=== PATIENT | female | born 1950 | race Caucasian/White ===

== ENCOUNTER → 2016-11-09 | Outpatient (CLI) | payer MEDICARE, OTHER ==
[~2016-11-09] MED LIST: COUMADIN PO; WARFARIN 10 MG
[2016-11-09 14:49] LABS: INR 2.79
== END ==
LOC: M LAB 12:53
PROVIDERS: ATTEND Internal Medicine Pulmonary Disease
DX: I26.99 Other pulmonary embolism without acute cor pulmonale (principal); Z51.81 Encounter for therapeutic drug level monitoring; Z79.01 Long term (current) use of anticoagulants

== ENCOUNTER → 2016-12-06 | Outpatient (CLI) | payer MEDICARE, OTHER ==
[2016-12-06 19:17] LABS: INR 2.3
== END ==
LOC: M LAB 17:47
PROVIDERS: ATTEND Internal Medicine Pulmonary Disease
DX: I26.99 Other pulmonary embolism without acute cor pulmonale (principal); Z51.81 Encounter for therapeutic drug level monitoring; Z79.01 Long term (current) use of anticoagulants

== ENCOUNTER → 2016-12-13 | Outpatient (CLI) | payer MEDICARE, OTHER ==
[2016-12-13 19:00] LABS: INR 2.88
== END ==
LOC: M LAB 17:37
PROVIDERS: ATTEND Internal Medicine Pulmonary Disease
DX: I26.99 Other pulmonary embolism without acute cor pulmonale (principal); Z51.81 Encounter for therapeutic drug level monitoring; Z79.01 Long term (current) use of anticoagulants

== ENCOUNTER → 2017-01-13 | Outpatient (CLI) | payer MEDICARE, OTHER ==
[2017-01-13 14:05] LABS: INR 3.36
== END ==
LOC: M LAB 13:10
PROVIDERS: ATTEND Internal Medicine Pulmonary Disease
DX: I26.99 Other pulmonary embolism without acute cor pulmonale (principal); Z51.81 Encounter for therapeutic drug level monitoring; Z79.01 Long term (current) use of anticoagulants

== ENCOUNTER → 2017-01-24 | Outpatient (CLI) | payer MEDICARE, OTHER ==
[2017-01-24 13:55] LABS: INR 3.81
== END ==
LOC: M LAB 13:08
PROVIDERS: ATTEND Internal Medicine Pulmonary Disease
DX: I26.99 Other pulmonary embolism without acute cor pulmonale (principal); Z79.01 Long term (current) use of anticoagulants

== ENCOUNTER → 2017-02-01 | Outpatient (CLI) | payer MEDICARE, OTHER ==
[2017-02-01 14:46] LABS: INR 2.78
== END ==
LOC: M LAB 13:57
PROVIDERS: ATTEND Internal Medicine Pulmonary Disease
DX: I26.99 Other pulmonary embolism without acute cor pulmonale (principal); Z79.01 Long term (current) use of anticoagulants; Z51.81 Encounter for therapeutic drug level monitoring

== ENCOUNTER → 2017-02-14 | Outpatient (CLI) | payer MEDICARE, OTHER ==
[2017-02-14 15:20] LABS: INR 2.56
== END ==
LOC: M LAB 14:14
PROVIDERS: ATTEND Internal Medicine Pulmonary Disease
DX: I26.99 Other pulmonary embolism without acute cor pulmonale (principal); Z51.81 Encounter for therapeutic drug level monitoring; Z79.01 Long term (current) use of anticoagulants

== ENCOUNTER → 2017-03-01 | Outpatient (CLI) | payer MEDICARE, OTHER ==
[2017-03-01 13:00] LABS: INR 2.65
== END ==
LOC: M LAB 12:11
PROVIDERS: ATTEND Internal Medicine Pulmonary Disease
DX: I26.99 Other pulmonary embolism without acute cor pulmonale (principal); Z79.01 Long term (current) use of anticoagulants

== ENCOUNTER → 2017-03-28 | Outpatient (CLI) | payer MEDICARE, OTHER ==
[2017-03-28 17:43] LABS: BASO % 0.4 % (0.0-1.0); EOS # 0.1 K/mm3 (0.0-0.50); EOS % 1.9 % (0.0-3.0); LARGE UNSTAINED CELL # 0.1 K/mm3 (0.0-0.4); LARGE UNSTAINED CELL % 1.7 % (0.0-4.0); LYMPH # 1.8 K/mm3 (1.5-4.5); LYMPH % 33.8 % (24.0-44.0); MEAN CORPUSCULAR HEMOGLOBIN 30.9 pg (27.0-33.0); MEAN CORPUSCULAR HGB CONC 33.5 g/dl (32.0-36.5); MEAN CORPUSCULAR VOLUME 92.3 fl (80.0-96.0); MONO # 0.4 K/mm3 (0.0-0.8); MONO % 6.9 % (0.0-5.0); NEUTROPHILS # 2.8 K/mm3 (1.8-7.7); NEUTROPHILS % 55.3 % (36.0-66.0); PLATELET COUNT, AUTOMATED 221 k/mm3 (150-450); RED CELL DISTRIBUTION WIDTH 13.1 % (11.5-14.5); WHITE BLOOD COUNT 5.1 K/mm3 (4.0-10.0)
[2017-03-28 17:51] LABS: INR 2.59
== END ==
LOC: M LAB 17:15
PROVIDERS: ATTEND Internal Medicine Pulmonary Disease
DX: I26.99 Other pulmonary embolism without acute cor pulmonale (principal); Z51.81 Encounter for therapeutic drug level monitoring; Z79.01 Long term (current) use of anticoagulants; Z86.711 Personal history of pulmonary embolism

== ENCOUNTER → 2017-04-25 | Outpatient (CLI) | payer MEDICARE, OTHER ==
[2017-04-25 15:19] LABS: INR 3.05
== END ==
LOC: M LAB 14:22
PROVIDERS: ATTEND Internal Medicine Pulmonary Disease
DX: I26.99 Other pulmonary embolism without acute cor pulmonale (principal); Z51.81 Encounter for therapeutic drug level monitoring; Z79.01 Long term (current) use of anticoagulants

== ENCOUNTER → 2017-05-23 | Outpatient (CLI) | payer MEDICARE, OTHER ==
[2017-05-23 14:08] LABS: INR 2.64
== END ==
LOC: M LAB 13:19
PROVIDERS: ATTEND Internal Medicine Pulmonary Disease
DX: Z79.01 Long term (current) use of anticoagulants (principal)

== ENCOUNTER → 2017-06-22 | Outpatient (CLI) | payer MEDICARE, OTHER ==
[2017-06-22 15:50] LABS: BASO % 0.8 % (0.0-1.0); EOS # 0.1 K/mm3 (0.0-0.50); EOS % 2.2 % (0.0-3.0); LARGE UNSTAINED CELL # 0.1 K/mm3 (0.0-0.4); LARGE UNSTAINED CELL % 1.8 % (0.0-4.0); LYMPH # 1.8 K/mm3 (1.5-4.5); LYMPH % 31.1 % (24.0-44.0); MEAN CORPUSCULAR HEMOGLOBIN 30.6 pg (27.0-33.0); MEAN CORPUSCULAR VOLUME 92.6 fl (80.0-96.0); MONO # 0.4 K/mm3 (0.0-0.8); MONO % 7.2 % (0.0-5.0); NEUTROPHILS % 56.9 % (36.0-66.0); PLATELET COUNT, AUTOMATED 237 k/mm3 (150-450); RED CELL DISTRIBUTION WIDTH 13.2 % (11.5-14.5); WHITE BLOOD COUNT 5.3 K/mm3 (4.0-10.0)
[2017-06-22 15:58] LABS: INR 2.83
== END ==
LOC: M LAB 14:53
PROVIDERS: ATTEND Internal Medicine Pulmonary Disease
DX: I26.99 Other pulmonary embolism without acute cor pulmonale (principal); Z51.81 Encounter for therapeutic drug level monitoring; Z79.01 Long term (current) use of anticoagulants; Z86.711 Personal history of pulmonary embolism

== ENCOUNTER → 2017-06-29 | Outpatient (CLI) | payer MEDICARE, OTHER ==
[2017-06-29 14:13] LABS: INR 2.64
== END ==
LOC: M LAB 13:09
PROVIDERS: ATTEND Internal Medicine Pulmonary Disease
DX: Z79.01 Long term (current) use of anticoagulants (principal); Z86.711 Personal history of pulmonary embolism

== ENCOUNTER → 2017-07-20 | Outpatient (CLI) | payer OTHER, MEDICARE ==
[2017-07-20 13:30] LABS: INR 2.91
== END ==
LOC: M LAB 12:45
PROVIDERS: ATTEND Internal Medicine Pulmonary Disease
DX: Z86.711 Personal history of pulmonary embolism (principal); Z79.01 Long term (current) use of anticoagulants

== ENCOUNTER → 2017-08-09 | Outpatient (CLI) | payer OTHER, MEDICARE ==
[2017-08-09 19:01] LABS: INR 3.43
== END ==
LOC: M LAB 18:01
PROVIDERS: ATTEND Internal Medicine Pulmonary Disease
DX: Z86.711 Personal history of pulmonary embolism (principal)

== ENCOUNTER → 2017-08-16 | Outpatient (CLI) | payer MEDICARE, OTHER ==
[2017-08-16 12:44] LABS: INR 3.15
== END ==
LOC: M LAB 11:17
PROVIDERS: ATTEND Internal Medicine Pulmonary Disease
DX: Z86.711 Personal history of pulmonary embolism (principal)

== ENCOUNTER → 2017-10-06 | Outpatient (CLI) | payer MEDICARE, OTHER ==
[2017-10-06 13:34] LABS: MEAN CORPUSCULAR HEMOGLOBIN 30.3 pg (27.0-33.0); MEAN CORPUSCULAR HGB CONC 32.6 g/dl (32.0-36.5); PLATELET COUNT, AUTOMATED 273 10^3/uL (150-450); RED CELL DISTRIBUTION WIDTH 13.1 % (11.5-14.5); WHITE BLOOD COUNT 5.6 10^3/uL (4.0-10.0)
[2017-10-06 13:48] LABS: INR 2.8
== END ==
LOC: M LAB 12:53
PROVIDERS: ATTEND Internal Medicine Pulmonary Disease
DX: D68.62 Lupus anticoagulant syndrome (principal); Z79.01 Long term (current) use of anticoagulants; Z86.711 Personal history of pulmonary embolism

== ENCOUNTER → 2017-11-09 | Outpatient (CLI) | payer MEDICARE, OTHER ==
[2017-11-09 11:29] LABS: INR 3.24; PROTHROMBIN TIME 34.6 SECONDS (12.4-14.5)
== END ==
LOC: M LAB 10:24
DX: Z51.81 Encounter for therapeutic drug level monitoring (principal); Z79.01 Long term (current) use of anticoagulants
CPT/HCPCS: 85610

== ENCOUNTER → 2017-11-17 | Outpatient (CLI) | payer MEDICARE, OTHER ==
[2017-11-17 10:38] LABS: INR 2.32; PROTHROMBIN TIME 26.4 SECONDS (12.4-14.5)
== END ==
LOC: M LAB 09:40
DX: D68.62 Lupus anticoagulant syndrome (principal); Z79.01 Long term (current) use of anticoagulants
CPT/HCPCS: 85610

== ENCOUNTER → 2017-11-29 | Outpatient (CLI) | payer MEDICARE, OTHER ==
[2017-11-29 12:13] LABS: INR 2.62; PROTHROMBIN TIME 29.1 SECONDS (12.4-14.5)
== END ==
LOC: M LAB 11:29
DX: Z51.81 Encounter for therapeutic drug level monitoring (principal); Z79.01 Long term (current) use of anticoagulants
CPT/HCPCS: 85610

== ENCOUNTER → 2017-12-15 | Outpatient (CLI) | payer MEDICARE, OTHER | LOC: M WHC 09:40 | DX: Z12.31 Encounter for screening mammogram for malignant neoplasm of breast (principal); Z78.0 Asymptomatic menopausal state | CPT/HCPCS: 77067 ==

== ENCOUNTER → 2017-12-19 | Outpatient (CLI) | payer MEDICARE, OTHER ==
[2017-12-19 14:12] LABS: HEMOGLOBIN 12.5 g/dl (12.0-16.0); MEAN CORPUSCULAR HEMOGLOBIN 29.7 pg (27.0-33.0); MEAN CORPUSCULAR HGB CONC 32.1 g/dl (32.0-36.5); MEAN CORPUSCULAR VOLUME 92.6 fl (80.0-96.0); PLATELET COUNT, AUTOMATED 265 10^3/uL (150-450); RED BLOOD COUNT 4.21 10^6/uL (4.00-5.40); RED CELL DISTRIBUTION WIDTH 13.1 % (11.5-14.5); WHITE BLOOD COUNT 5.3 10^3/uL (4.0-10.0)
[2017-12-19 14:23] LABS: INR 2.86; PROTHROMBIN TIME 31.3 SECONDS (12.4-14.5)
== END ==
LOC: M LAB 12:53
DX: D68.62 Lupus anticoagulant syndrome (principal); Z79.01 Long term (current) use of anticoagulants; Z86.711 Personal history of pulmonary embolism
CPT/HCPCS: 85610

== ENCOUNTER → 2018-01-18 | Outpatient (CLI) | payer MEDICARE, OTHER ==
[2018-01-18 11:40] LABS: INR 3.96; PROTHROMBIN TIME 40.7 SECONDS (12.4-14.5)
== END ==
LOC: M LAB 10:57
DX: D68.62 Lupus anticoagulant syndrome (principal)
CPT/HCPCS: 85610

== ENCOUNTER → 2018-02-01 | Outpatient (CLI) | payer MEDICARE, OTHER ==
[2018-02-01 13:37] LABS: INR 2.49; PROTHROMBIN TIME 27.9 SECONDS (12.4-14.5)
== END ==
LOC: M LAB 13:04
DX: D68.62 Lupus anticoagulant syndrome (principal); Z79.01 Long term (current) use of anticoagulants
CPT/HCPCS: 85610

== ENCOUNTER → 2018-03-09 | Outpatient (CLI) | payer MEDICARE, OTHER ==
[2018-03-09 11:34] LABS: INR 2.97; PROTHROMBIN TIME 32.2 SECONDS (12.4-14.5)
== END ==
LOC: M LAB 10:47
DX: D68.62 Lupus anticoagulant syndrome (principal); Z79.01 Long term (current) use of anticoagulants
CPT/HCPCS: 85610

== ENCOUNTER → 2018-03-28 | Outpatient (CLI) | payer MEDICARE, OTHER ==
[2018-03-28 14:12] LABS: INR 2.21; PROTHROMBIN TIME 25.3 SECONDS (12.4-14.5)
== END ==
LOC: M LAB 12:37
DX: Z51.81 Encounter for therapeutic drug level monitoring (principal); Z79.01 Long term (current) use of anticoagulants
CPT/HCPCS: 85610

== ENCOUNTER → 2018-04-25 | Outpatient (CLI) | payer MEDICARE, OTHER ==
[2018-04-25 11:20] LABS: INR 2.41; PROTHROMBIN TIME 27.2 SECONDS (12.4-14.5)
== END ==
LOC: M LAB 10:20
DX: Z51.81 Encounter for therapeutic drug level monitoring (principal); Z79.01 Long term (current) use of anticoagulants
CPT/HCPCS: 85610

== ENCOUNTER → 2018-05-22 | Outpatient (CLI) | payer MEDICARE, OTHER ==
[2018-05-22 13:30] LABS: INR 2.53; PROTHROMBIN TIME 27.8 SECONDS (12.1-14.4)
== END ==
LOC: M LAB 12:59
DX: Z51.81 Encounter for therapeutic drug level monitoring (principal); Z79.01 Long term (current) use of anticoagulants
CPT/HCPCS: 85610

== ENCOUNTER → 2018-06-12 | Outpatient (CLI) | payer MEDICARE, OTHER ==
[2018-06-12 13:18] LABS: HEMATOCRIT 39.5 % (36.0-47.0); HEMOGLOBIN 13.1 g/dl (12.0-15.5); MEAN CORPUSCULAR HEMOGLOBIN 30.6 pg (27.0-33.0); MEAN CORPUSCULAR HGB CONC 33.2 g/dl (32.0-36.5); MEAN CORPUSCULAR VOLUME 92.3 fl (80.0-96.0); PLATELET COUNT, AUTOMATED 234 10^3/uL (150-450); RED BLOOD COUNT 4.28 10^6/uL (4.00-5.40); RED CELL DISTRIBUTION WIDTH 13.3 % (11.5-14.5)
[2018-06-12 13:30] LABS: INR 2.46; PROTHROMBIN TIME 27.2 SECONDS (12.1-14.4)
== END ==
LOC: M LAB 12:42
DX: Z51.81 Encounter for therapeutic drug level monitoring (principal); Z79.01 Long term (current) use of anticoagulants; D68.62 Lupus anticoagulant syndrome; Z86.711 Personal history of pulmonary embolism
CPT/HCPCS: 85610

== ENCOUNTER → 2018-07-31 | Outpatient (CLI) | payer MEDICARE, OTHER ==
[2018-07-31 14:31] LABS: INR 3.71; PROTHROMBIN TIME 37.6 SECONDS (12.1-14.4)
== END ==
LOC: M LAB 12:48
DX: Z79.01 Long term (current) use of anticoagulants (principal)
CPT/HCPCS: 85610

== ENCOUNTER → 2018-08-10 | Outpatient (CLI) | payer MEDICARE, OTHER ==
[2018-08-10 13:49] LABS: INR 3.34; PROTHROMBIN TIME 34.6 SECONDS (12.1-14.4)
== END ==
LOC: M LAB 13:03
DX: Z51.81 Encounter for therapeutic drug level monitoring (principal); Z79.01 Long term (current) use of anticoagulants
CPT/HCPCS: 85610

== ENCOUNTER → 2018-08-17 | Outpatient (CLI) | payer MEDICARE, OTHER ==
[2018-08-17 13:45] LABS: INR 2.37; PROTHROMBIN TIME 26.4 SECONDS (12.1-14.4)
== END ==
LOC: M LAB 13:03
DX: Z51.81 Encounter for therapeutic drug level monitoring (principal); Z79.01 Long term (current) use of anticoagulants
CPT/HCPCS: 85610

== ENCOUNTER → 2018-08-31 | Outpatient (REF) | payer MEDICARE, OTHER ==
[2018-08-31 12:32] LABS: INR 2.39; PROTHROMBIN TIME 26.6 SECONDS (12.1-14.4)
== END ==
LOC: M LAB REF 11:52
DX: Z51.81 Encounter for therapeutic drug level monitoring (principal); Z79.01 Long term (current) use of anticoagulants; Z86.711 Personal history of pulmonary embolism
CPT/HCPCS: 85610

== ENCOUNTER → 2018-09-07 | Outpatient (CLI) | payer MEDICARE, OTHER ==
[2018-09-07 13:28] LABS: HEMATOCRIT 39.8 % (36.0-47.0); HEMOGLOBIN 12.8 g/dl (12.0-15.5); MEAN CORPUSCULAR HEMOGLOBIN 29.8 pg (27.0-33.0); MEAN CORPUSCULAR HGB CONC 32.2 g/dl (32.0-36.5); MEAN CORPUSCULAR VOLUME 92.6 fl (80.0-96.0); PLATELET COUNT, AUTOMATED 269 10^3/uL (150-450); RED CELL DISTRIBUTION WIDTH 13.1 % (11.5-14.5); WHITE BLOOD COUNT 4.6 10^3/uL (4.0-10.0)
[2018-09-07 13:41] LABS: INR 2.54; PROTHROMBIN TIME 27.9 SECONDS (12.1-14.4)
== END ==
LOC: M LAB 12:22
DX: Z51.81 Encounter for therapeutic drug level monitoring (principal); Z79.01 Long term (current) use of anticoagulants; Z86.711 Personal history of pulmonary embolism
CPT/HCPCS: 85610

== ENCOUNTER → 2018-09-22 | Outpatient (CLI) | payer MEDICARE, OTHER ==
[2018-09-22 13:09] LABS: INR 2.28; PROTHROMBIN TIME 25.6 SECONDS (12.1-14.4)
== END ==
LOC: M LAB 11:25
DX: Z09 Encounter for follow-up examination after completed treatment for conditions other than malignant neoplasm (principal); Z86.711 Personal history of pulmonary embolism
CPT/HCPCS: 85610

== ENCOUNTER → 2018-10-05 | Outpatient (CLI) | payer MEDICARE, OTHER ==
[2018-10-05 14:21] LABS: INR 2.54; PROTHROMBIN TIME 27.9 SECONDS (12.1-14.4)
== END ==
LOC: M LAB 13:11
DX: Z09 Encounter for follow-up examination after completed treatment for conditions other than malignant neoplasm (principal); Z86.711 Personal history of pulmonary embolism
CPT/HCPCS: 85610

== ENCOUNTER → 2018-10-23 | Outpatient (CLI) | payer MEDICARE, OTHER ==
[2018-10-23 13:49] LABS: INR 2.73; PROTHROMBIN TIME 29.5 SECONDS (12.1-14.4)
== END ==
LOC: M LAB 12:46
PROVIDERS: ATTEND Internal Medicine Pulmonary Disease
DX: Z86.711 Personal history of pulmonary embolism (principal)

== ENCOUNTER → 2018-11-14 | Outpatient (CLI) | payer MEDICARE, OTHER ==
[2018-11-14 13:15] LABS: INR 2.21
== END ==
LOC: M LAB 12:26
PROVIDERS: ATTEND Internal Medicine Pulmonary Disease
DX: Z86.711 Personal history of pulmonary embolism (principal); Z79.01 Long term (current) use of anticoagulants

== ENCOUNTER → 2018-11-21 | Outpatient (CLI) | payer MEDICARE, OTHER ==
[2018-11-21 13:42] LABS: INR 2.4; PROTHROMBIN TIME 26.7 SECONDS (12.1-14.4)
== END ==
LOC: M LAB 12:58
PROVIDERS: ATTEND Internal Medicine Pulmonary Disease
DX: Z79.01 Long term (current) use of anticoagulants (principal); Z86.711 Personal history of pulmonary embolism

== ENCOUNTER → 2018-12-05 | Outpatient (CLI) | payer MEDICARE, OTHER ==
[2018-12-05 20:07] LABS: INR 2.35; PROTHROMBIN TIME 26.2 SECONDS (12.1-14.4)
== END ==
LOC: M LAB 12:44
PROVIDERS: ATTEND Internal Medicine Pulmonary Disease
DX: Z86.711 Personal history of pulmonary embolism (principal)

== ENCOUNTER → 2018-12-26 | Outpatient (CLI) | payer MEDICARE, OTHER ==
[2018-12-26 12:38] LABS: INR 1.87; PROTHROMBIN TIME 21.8 SECONDS (12.1-14.4)
== END ==
LOC: M LAB 11:39
PROVIDERS: ATTEND Internal Medicine Pulmonary Disease
DX: Z86.711 Personal history of pulmonary embolism (principal)

== ENCOUNTER → 2019-01-03 | Outpatient (CLI) | payer MEDICARE, OTHER ==
[2019-01-03 13:53] LABS: INR 2.37; PROTHROMBIN TIME 26.3 SECONDS (12.1-14.4)
== END ==
LOC: M LAB 12:23
PROVIDERS: ATTEND Internal Medicine Pulmonary Disease
DX: Z86.711 Personal history of pulmonary embolism (principal)

== ENCOUNTER → 2019-01-10 | Outpatient (CLI) | payer MEDICARE, OTHER ==
[2019-01-10 13:53] LABS: INR 2.59; PROTHROMBIN TIME 28.3 SECONDS (12.1-14.4)
== END ==
LOC: M LAB 12:34
PROVIDERS: ATTEND Internal Medicine Pulmonary Disease
DX: Z86.711 Personal history of pulmonary embolism (principal); Z79.01 Long term (current) use of anticoagulants

== ENCOUNTER → 2019-01-19 | Outpatient (CLI) | payer MEDICARE, OTHER ==
--- NOTE | 2019-01-19 16:29 | REPMRS ---
Patient History The patient states she had a clinical breast exam in 01/2019. Patient is postmenopausal. Family history of prostate cancer at age 50 or over in father, colorectal cancer at age 50 or over in paternal grandfather. No Hormone Replacement Therapy Digital Woman Screen Mammo: January 19, 2019 - Exam #: [id number] Bilateral CC and MLO view(s) were taken. Technologist: Megha Sheehan, Technologist Prior study comparison: December 15, 2017, digital woman screen mammo performed at [facility]. October 25, 2016, digital woman screen mammo performed at [facility]. FINDINGS: The breast tissue is almost entirely fat. There has been no change in the appearance of the mammogram from the prior studies. There is no interval development of dominant mass, areas of architectural distortion, or clustered microcalcification typical of malignancy. There are scattered, small, benign calcifications of doubtful clinical significance. There is a benign appearing intramammary node in the upper outer quadrant of the bilateral breasts. Scattered lymph nodes are seen in the axillae. 3-D tomosynthesis shows no additional findings. No significant changes when compared with prior studies. Assessment: BI-RADS/ACR category 2 mammogram. Benign Findings. Recommendation Routine screening mammogram in 1 year. A. Negative x-ray reports should not delay biopsy if a dominant or clinically suspicious mass is present. B. Four to eight percent of cancers are not identified by mammography. C. Adenosis and dense breast may obscure an underlying neoplasm.(for women over age 40). This mammogram was interpreted with the aid of an FDA-approved computer-aided dectection system. Electronically Signed By: Anirudh Manzo MD 01/19/19 [id number]
== END ==
LOC: M WHC 11:15
PROVIDERS: ATTEND Nurse Practitioner Family
DX: Z12.31 Encounter for screening mammogram for malignant neoplasm of breast (principal); Z78.0 Asymptomatic menopausal state; R92.1 Mammographic calcification found on diagnostic imaging of breast
CPT/HCPCS: 77063; 77067; G0463

== ENCOUNTER → 2019-01-24 | Outpatient (CLI) | payer MEDICARE, OTHER ==
[2019-01-24 13:33] LABS: INR 3.07; PROTHROMBIN TIME 32.4 SECONDS (12.1-14.4)
== END ==
LOC: M LAB 12:27
PROVIDERS: ATTEND Internal Medicine Pulmonary Disease
DX: Z86.711 Personal history of pulmonary embolism (principal)

== ENCOUNTER → 2019-02-06 | Outpatient (CLI) | payer MEDICARE, OTHER ==
[2019-02-06 13:11] LABS: INR 2.57; PROTHROMBIN TIME 28.1 SECONDS (12.1-14.4)
== END ==
LOC: M LAB 12:33
PROVIDERS: ATTEND Internal Medicine Pulmonary Disease
DX: Z09 Encounter for follow-up examination after completed treatment for conditions other than malignant neoplasm (principal); Z86.711 Personal history of pulmonary embolism

== ENCOUNTER → 2019-02-27 | Outpatient (CLI) | payer MEDICARE, OTHER ==
[2019-02-27 11:36] LABS: HEMATOCRIT 40.4 % (36.0-47.0); MEAN CORPUSCULAR HEMOGLOBIN 29.7 pg (27.0-33.0); MEAN CORPUSCULAR HGB CONC 32.2 g/dl (32.0-36.5); MEAN CORPUSCULAR VOLUME 92.4 fl (80.0-96.0); PLATELET COUNT, AUTOMATED 244 10^3/uL (150-450); RED BLOOD COUNT 4.37 10^6/uL (4.00-5.40); WHITE BLOOD COUNT 5.7 10^3/uL (4.0-10.0)
[2019-02-27 11:53] LABS: INR 2.73; PROTHROMBIN TIME 29.5 SECONDS (12.1-14.4)
== END ==
LOC: M LAB 11:16
PROVIDERS: ATTEND Internal Medicine Pulmonary Disease
DX: Z86.711 Personal history of pulmonary embolism (principal); Z79.01 Long term (current) use of anticoagulants; D68.62 Lupus anticoagulant syndrome

== ENCOUNTER → 2019-03-20 | Outpatient (CLI) | payer MEDICARE, OTHER ==
[2019-03-20 13:43] LABS: INR 2.46; PROTHROMBIN TIME 27.2 SECONDS (12.1-14.4)
== END ==
LOC: M LAB 12:46
PROVIDERS: ATTEND Internal Medicine Pulmonary Disease
DX: Z86.711 Personal history of pulmonary embolism (principal); Z79.01 Long term (current) use of anticoagulants

== ENCOUNTER → 2019-04-10 | Outpatient (CLI) | payer MEDICARE, OTHER ==
[2019-04-10 13:43] LABS: INR 2.14; PROTHROMBIN TIME 24.3 SECONDS (12.1-14.4)
== END ==
LOC: M LAB 12:48
PROVIDERS: ATTEND Internal Medicine Pulmonary Disease
DX: Z86.711 Personal history of pulmonary embolism (principal); Z79.01 Long term (current) use of anticoagulants

== ENCOUNTER → 2019-05-01 | Outpatient (CLI) | payer MEDICARE, OTHER ==
[2019-05-01 11:01] LABS: INR 2.39; PROTHROMBIN TIME 25.9 SECONDS (11.8-14.0)
== END ==
LOC: M LAB 09:57
PROVIDERS: ATTEND Internal Medicine Pulmonary Disease
DX: Z86.711 Personal history of pulmonary embolism (principal); Z79.01 Long term (current) use of anticoagulants

== ENCOUNTER → 2019-06-25 | Outpatient (CLI) | payer MEDICARE, OTHER ==
[2019-06-25 12:19] LABS: INR 3.38; PROTHROMBIN TIME 34.2 SECONDS (11.8-14.0)
== END ==
LOC: M LAB 10:58
PROVIDERS: ATTEND Internal Medicine Pulmonary Disease
DX: Z79.01 Long term (current) use of anticoagulants (principal); Z86.711 Personal history of pulmonary embolism

== ENCOUNTER → 2019-07-11 | Outpatient (CLI) | payer MEDICARE, OTHER ==
[2019-07-11 11:52] LABS: INR 2.69; PROTHROMBIN TIME 28.5 SECONDS (11.8-14.0)
== END ==
LOC: M LAB 11:02
PROVIDERS: ATTEND Internal Medicine Pulmonary Disease
DX: Z86.711 Personal history of pulmonary embolism (principal); Z79.01 Long term (current) use of anticoagulants

== ENCOUNTER → 2019-08-07 | Outpatient (CLI) | payer MEDICARE, OTHER ==
[2019-08-07 12:36] LABS: HEMATOCRIT 40.9 % (36.0-47.0); HEMOGLOBIN 13.1 g/dl (12.0-15.5); MEAN CORPUSCULAR HEMOGLOBIN 30.2 pg (27.0-33.0); MEAN CORPUSCULAR VOLUME 94.2 fl (80.0-96.0); PLATELET COUNT, AUTOMATED 245 10^3/uL (150-450); RED BLOOD COUNT 4.34 10^6/uL (4.00-5.40); WHITE BLOOD COUNT 4.4 10^3/uL (4.0-10.0)
[2019-08-07 12:53] LABS: INR 2.64
== END ==
LOC: M LAB 11:40
PROVIDERS: ATTEND Internal Medicine Pulmonary Disease
DX: Z86.711 Personal history of pulmonary embolism (principal); Z79.01 Long term (current) use of anticoagulants

== ENCOUNTER → 2019-09-04 | Outpatient (CLI) | payer MEDICARE, OTHER ==
[2019-09-04 14:05] LABS: INR 3.33; PROTHROMBIN TIME 33.8 SECONDS (11.8-14.0)
== END ==
LOC: M LAB 13:02
PROVIDERS: ATTEND Internal Medicine Pulmonary Disease
DX: Z51.81 Encounter for therapeutic drug level monitoring (principal); Z86.711 Personal history of pulmonary embolism; Z79.01 Long term (current) use of anticoagulants

== ENCOUNTER → 2019-09-17 | Outpatient (CLI) | payer MEDICARE, OTHER ==
[2019-09-17 13:05] LABS: INR 2.65; PROTHROMBIN TIME 28.1 SECONDS (11.8-14.0)
== END ==
LOC: M LAB 11:13
PROVIDERS: ATTEND Internal Medicine Pulmonary Disease
DX: Z86.711 Personal history of pulmonary embolism (principal); Z79.01 Long term (current) use of anticoagulants

== ENCOUNTER → 2019-10-01 | Outpatient (CLI) | payer MEDICARE, OTHER ==
[2019-10-01 10:54] LABS: INR 2.72; PROTHROMBIN TIME 28.7 SECONDS (11.8-14.0)
== END ==
LOC: M LAB 08:53
PROVIDERS: ATTEND Internal Medicine Pulmonary Disease
DX: Z51.81 Encounter for therapeutic drug level monitoring (principal); Z79.01 Long term (current) use of anticoagulants; Z86.711 Personal history of pulmonary embolism

== ENCOUNTER → 2019-10-22 | Outpatient (CLI) | payer MEDICARE, OTHER ==
[2019-10-22 20:49] LABS: INR 2.97; PROTHROMBIN TIME 30.9 SECONDS (11.8-14.0)
== END ==
LOC: M LAB 14:28
PROVIDERS: ATTEND Internal Medicine Pulmonary Disease
DX: Z51.81 Encounter for therapeutic drug level monitoring (principal); Z79.01 Long term (current) use of anticoagulants; Z86.711 Personal history of pulmonary embolism

== ENCOUNTER → 2019-11-20 | Outpatient (CLI) | payer MEDICARE, OTHER ==
[2019-11-20 12:08] LABS: HEMATOCRIT 41.1 % (36.0-47.0); HEMOGLOBIN 13.1 g/dl (12.0-15.5); MEAN CORPUSCULAR HEMOGLOBIN 30.2 pg (27.0-33.0); MEAN CORPUSCULAR HGB CONC 31.9 g/dl (32.0-36.5); MEAN CORPUSCULAR VOLUME 94.7 fl (80.0-96.0); PLATELET COUNT, AUTOMATED 246 10^3/uL (150-450); RED BLOOD COUNT 4.34 10^6/uL (4.00-5.40); WHITE BLOOD COUNT 4.8 10^3/uL (4.0-10.0)
[2019-11-20 12:19] LABS: INR 3.09; PROTHROMBIN TIME 31.8 SECONDS (11.8-14.0)
== END ==
LOC: M LAB 11:30
PROVIDERS: ATTEND Internal Medicine Pulmonary Disease
DX: Z51.81 Encounter for therapeutic drug level monitoring (principal); Z79.01 Long term (current) use of anticoagulants; Z86.711 Personal history of pulmonary embolism

== ENCOUNTER → 2019-12-19 | Outpatient (CLI) | payer MEDICARE, OTHER ==
[2019-12-19 11:47] LABS: PROTHROMBIN TIME 49.5 SECONDS (11.8-14.0)
[2019-12-19 12:23] LABS: INR 5.37
== END ==
LOC: M LAB 10:41 → M RAD 10:41
PROVIDERS: ATTEND Internal Medicine Pulmonary Disease
DX: Z51.81 Encounter for therapeutic drug level monitoring (principal); Z79.01 Long term (current) use of anticoagulants; Z86.711 Personal history of pulmonary embolism

== ENCOUNTER → 2019-12-21 | Outpatient (CLI) | payer MEDICARE, OTHER ==
[2019-12-21 11:57] LABS: INR 2.65; PROTHROMBIN TIME 28.1 SECONDS (11.8-14.0)
== END ==
LOC: M LAB 10:50
PROVIDERS: ATTEND Internal Medicine Pulmonary Disease
DX: Z51.81 Encounter for therapeutic drug level monitoring (principal); Z79.01 Long term (current) use of anticoagulants; Z86.711 Personal history of pulmonary embolism

== ENCOUNTER → 2019-12-24 | Outpatient (CLI) | payer MEDICARE, OTHER ==
[2019-12-24 12:18] LABS: INR 2.85; PROTHROMBIN TIME 29.8 SECONDS (11.8-14.0)
== END ==
LOC: M LAB 11:10
PROVIDERS: ATTEND Internal Medicine Pulmonary Disease
DX: Z51.81 Encounter for therapeutic drug level monitoring (principal); Z79.01 Long term (current) use of anticoagulants; Z86.711 Personal history of pulmonary embolism

== ENCOUNTER → 2020-01-07 | Outpatient (CLI) | payer MEDICARE, OTHER ==
[2020-01-07 13:18] LABS: INR 3.33; PROTHROMBIN TIME 33.8 SECONDS (11.8-14.0)
== END ==
LOC: M LAB 11:51
PROVIDERS: ATTEND Internal Medicine Pulmonary Disease
DX: Z51.81 Encounter for therapeutic drug level monitoring (principal); Z79.01 Long term (current) use of anticoagulants; Z86.711 Personal history of pulmonary embolism

== ENCOUNTER → 2020-01-10 | Outpatient (CLI) | payer MEDICARE, OTHER ==
[2020-01-10 14:22] LABS: INR 2.55; PROTHROMBIN TIME 27.3 SECONDS (11.8-14.0)
== END ==
LOC: M LAB 13:21
PROVIDERS: ATTEND Internal Medicine Pulmonary Disease
DX: Z51.81 Encounter for therapeutic drug level monitoring (principal); Z79.01 Long term (current) use of anticoagulants; Z86.711 Personal history of pulmonary embolism

== ENCOUNTER → 2020-01-17 | Outpatient (CLI) | payer MEDICARE, OTHER ==
[2020-01-17 14:31] LABS: INR 2.65; PROTHROMBIN TIME 28.1 SECONDS (11.8-14.0)
== END ==
LOC: M LAB 12:07
PROVIDERS: ATTEND Internal Medicine Pulmonary Disease
DX: Z51.81 Encounter for therapeutic drug level monitoring (principal); Z79.01 Long term (current) use of anticoagulants; Z86.711 Personal history of pulmonary embolism

== ENCOUNTER → 2020-02-07 | Outpatient (REF) | payer MEDICARE, OTHER ==
[2020-02-07 16:39] LABS: INR 2.52
== END ==
LOC: M LABDRWAD 16:02
PROVIDERS: ATTEND Internal Medicine Pulmonary Disease
DX: Z51.81 Encounter for therapeutic drug level monitoring (principal); Z79.01 Long term (current) use of anticoagulants; Z86.711 Personal history of pulmonary embolism

== ENCOUNTER → 2020-02-28 | Outpatient (REF) | payer MEDICARE, OTHER ==
[2020-02-28 13:27] LABS: HEMATOCRIT 43.9 % (36.0-47.0); HEMOGLOBIN 14.3 g/dl (12.0-15.5); MEAN CORPUSCULAR HEMOGLOBIN 30.3 pg (27.0-33.0); MEAN CORPUSCULAR HGB CONC 32.6 g/dl (32.0-36.5); PLATELET COUNT, AUTOMATED 254 10^3/uL (150-450); RED BLOOD COUNT 4.72 10^6/uL (4.00-5.40); WHITE BLOOD COUNT 5.3 10^3/uL (4.0-10.0)
[2020-02-28 13:38] LABS: INR 2.91; PROTHROMBIN TIME 30.3 SECONDS (11.8-14.0)
== END ==
LOC: M LABDRWAD 12:28
PROVIDERS: ATTEND Internal Medicine Pulmonary Disease
DX: Z86.711 Personal history of pulmonary embolism (principal); Z79.01 Long term (current) use of anticoagulants

== ENCOUNTER → 2020-03-03 | Outpatient (REF) | payer MEDICARE, OTHER ==
[2020-03-03 17:40] LABS: INR 3.03; PROTHROMBIN TIME 31.3 SECONDS (11.8-14.0)
== END ==
LOC: M LABDRWAD 16:26
PROVIDERS: ATTEND Internal Medicine Pulmonary Disease
DX: Z86.711 Personal history of pulmonary embolism (principal); Z79.01 Long term (current) use of anticoagulants

== ENCOUNTER → 2020-03-17 | Outpatient (REF) | payer MEDICARE, OTHER ==
[2020-03-17 17:06] LABS: INR 2.37; PROTHROMBIN TIME 25.7 SECONDS (11.8-14.0)
== END ==
LOC: M LABDRWAD 16:23
PROVIDERS: ATTEND Internal Medicine Pulmonary Disease
DX: Z86.711 Personal history of pulmonary embolism (principal); Z79.01 Long term (current) use of anticoagulants

== ENCOUNTER → 2020-03-27 | Outpatient (CLI) | payer MEDICARE, OTHER ==
--- NOTE | 2020-03-27 10:22 | REPMRS ---
Patient History The patient states she had a clinical breast exam in March 2020. Family history of prostate cancer at age 50 or over in father, colorectal cancer at age 50 or over in paternal grandfather. No Hormone Replacement Therapy Digital Woman Screen Mammo: March 27, 2020 - Exam #: [id number] Bilateral CC and MLO view(s) were taken. Technologist: Noelle Neri, Technologist Prior study comparison: January 19, 2019, bilateral digital woman screen mammo performed at [facility]. December 15, 2017, digital woman screen mammo performed at [facility]. October 25, 2016, digital woman screen mammo performed at [facility]. FINDINGS: There are scattered fibroglandular densities. The Volpara volumetric breast density category is:B. There has been no change in the appearance of the mammogram from the prior studies. There is a mild amount of scattered fibroglandular density which is fairly symmetric. There is no interval development of dominant mass, architectural distortion, or grouped microcalcification suggestive of malignancy. 3-D tomosynthesis shows no additional findings. Assessment: BI-RADS/ACR category 1 mammogram. Negative Mammogram. Recommendation Routine screening mammogram of both breasts in 1 year (for women over age 40). This patient's Lifetime Breast Cancer Risk is estimated at 4.0 %. This mammogram was interpreted with the aid of an FDA-approved computer-aided dectection system. Electronically Signed By: Miguel Freitas MD 03/27/20 [id number]
--- NOTE | 2020-04-04 14:45 | DEXA ---
AP SPINE L1 - L4 1.184 -0.1 1.6 LT FEMUR TOTAL 0.871 -1.1 0.3 LT NECK 0.868 -1.2 0.4 RT FEMUR TOTAL 0.926 -0.7 0.7 RT NECK 0.921 -0.8 0.8 TOTAL BODY TOTAL OTHER COMMENTS: Normal bone densitometry of the spine. Normal bone densitometry of the right hip. There is low bone density of the left hip. The increased density of the spine does not represent significant change. The decreased density of the left hip does represent a significant change. The decreased density of the right hip does not represent a significant change. The density of the spine is decreased 3.4% since the initial exam on 12/30/2000. The increased 0.1% since the most recent exam on 07/02/2015. The density of the left hip has decreased 23.5% since the initial exam on 12/30/2000. The density of the left hip has decreased 5.4% since the most recent exam on 07/02/2015. The density of the right hip has decreased 15.2% since the initial exam on 12/30/2000. The density of the right hip has decreased 1.5% since the most recent exam on 07/02/2015. FOLLOW-UP: Recommendation for the next bone density exam: 2 years. JORGE
== END ==
LOC: M WHC 08:43
PROVIDERS: ATTEND Nurse Practitioner Family
DX: Z12.31 Encounter for screening mammogram for malignant neoplasm of breast (principal); Z78.0 Asymptomatic menopausal state; Z80.42 Family history of malignant neoplasm of prostate

== ENCOUNTER → 2020-04-01 | Outpatient (REF) | payer MEDICARE, OTHER ==
[2020-04-01 13:21] LABS: INR 2.97; PROTHROMBIN TIME 30.8 SECONDS (11.8-14.0)
== END ==
LOC: M LABDRWAD 12:28
PROVIDERS: ATTEND Internal Medicine Pulmonary Disease
DX: Z86.711 Personal history of pulmonary embolism (principal); Z79.01 Long term (current) use of anticoagulants

== ENCOUNTER → 2020-04-29 | Outpatient (REF) | payer MEDICARE, OTHER ==
[2020-04-29 17:21] LABS: INR 2.98; PROTHROMBIN TIME 30.9 SECONDS (11.8-14.0)
== END ==
LOC: M LABDRWAD 16:15
PROVIDERS: ATTEND Internal Medicine Pulmonary Disease
DX: Z86.711 Personal history of pulmonary embolism (principal); Z79.01 Long term (current) use of anticoagulants

== ENCOUNTER → 2020-05-27 | Outpatient (REF) | payer MEDICARE, OTHER ==
[2020-05-27 18:56] LABS: HEMOGLOBIN 12.8 g/dl (12.0-15.5); MEAN CORPUSCULAR HEMOGLOBIN 29.9 pg (27.0-33.0); MEAN CORPUSCULAR VOLUME 93.5 fl (80.0-96.0); PLATELET COUNT, AUTOMATED 259 10^3/uL (150-450); RED BLOOD COUNT 4.28 10^6/uL (4.00-5.40); WHITE BLOOD COUNT 5.2 10^3/uL (4.0-10.0)
[2020-05-27 19:06] LABS: INR 3.24
== END ==
LOC: M LABDRWAD 16:43
PROVIDERS: ATTEND Internal Medicine Pulmonary Disease
DX: Z86.711 Personal history of pulmonary embolism (principal); Z79.01 Long term (current) use of anticoagulants

== ENCOUNTER → 2020-06-24 | Outpatient (REF) | payer MEDICARE, OTHER ==
[2020-08-12 12:39] LABS: INR 2.69; PROTHROMBIN TIME 29.2 SECONDS (12.5-14.3)
== END ==
LOC: M LABDRWAD 09:54
PROVIDERS: ATTEND Internal Medicine Pulmonary Disease
DX: Z86.711 Personal history of pulmonary embolism (principal); Z79.01 Long term (current) use of anticoagulants

== ENCOUNTER → 2020-07-22 | Outpatient (REF) | payer MEDICARE, OTHER ==
[2020-07-22 17:54] LABS: INR 2.61; PROTHROMBIN TIME 28.5 SECONDS (11.8-14.0)
== END ==
LOC: M LABDRWAD 16:47
PROVIDERS: ATTEND Internal Medicine Pulmonary Disease
DX: Z86.711 Personal history of pulmonary embolism (principal); Z79.01 Long term (current) use of anticoagulants

== ENCOUNTER → 2020-07-31 | Outpatient (REF) | payer MEDICARE, OTHER ==
[2020-07-31 19:19] LABS: INR 2.57; PROTHROMBIN TIME 28.1 SECONDS (12.5-14.3)
== END ==
LOC: M LABDRWAD 16:50
PROVIDERS: ATTEND Internal Medicine Pulmonary Disease
DX: Z79.01 Long term (current) use of anticoagulants (principal); Z86.711 Personal history of pulmonary embolism

== ENCOUNTER → 2020-08-13 | Outpatient (REF) | payer MEDICARE, OTHER ==
[2020-08-13 17:23] LABS: INR 3.04; PROTHROMBIN TIME 32.2 SECONDS (12.5-14.3)
== END ==
LOC: M LABDRWAD 16:14
PROVIDERS: ATTEND Internal Medicine Pulmonary Disease
DX: Z86.711 Personal history of pulmonary embolism (principal); Z79.01 Long term (current) use of anticoagulants

== ENCOUNTER → 2020-09-03 | Outpatient (REF) | payer MEDICARE, OTHER ==
[2020-09-03 17:56] LABS: HEMATOCRIT 40.5 % (36.0-47.0); HEMOGLOBIN 12.6 g/dl (12.0-15.5); MEAN CORPUSCULAR HEMOGLOBIN 29.2 pg (27.0-33.0); MEAN CORPUSCULAR HGB CONC 31.1 g/dl (32.0-36.5); MEAN CORPUSCULAR VOLUME 93.8 fl (80.0-96.0); PLATELET COUNT, AUTOMATED 267 10^3/uL (150-450); RED BLOOD COUNT 4.32 10^6/uL (4.00-5.40); WHITE BLOOD COUNT 4.6 10^3/uL (4.0-10.0)
[2020-09-03 18:05] LABS: INR 2.97; PROTHROMBIN TIME 31.6 SECONDS (12.5-14.3)
== END ==
LOC: M LABDRWAD 17:27
PROVIDERS: ATTEND Internal Medicine Pulmonary Disease
DX: Z86.711 Personal history of pulmonary embolism (principal); Z79.01 Long term (current) use of anticoagulants

== ENCOUNTER → 2020-09-29 | Outpatient (REF) | payer MEDICARE, OTHER ==
[2020-09-29 12:44] LABS: INR 2.96; PROTHROMBIN TIME 31.5 SECONDS (12.5-14.3)
== END ==
LOC: M LABDRWAD 12:21
PROVIDERS: ATTEND Internal Medicine Pulmonary Disease
DX: Z79.01 Long term (current) use of anticoagulants (principal); Z86.711 Personal history of pulmonary embolism

== ENCOUNTER → 2020-10-27 | Outpatient (REF) | payer MEDICARE, OTHER ==
[2020-10-27 17:34] LABS: INR 2.17; PROTHROMBIN TIME 24.7 SECONDS (12.5-14.3)
== END ==
LOC: M LABDRWAD 16:22
PROVIDERS: ATTEND Internal Medicine Pulmonary Disease
DX: Z86.711 Personal history of pulmonary embolism (principal); Z79.01 Long term (current) use of anticoagulants

== ENCOUNTER → 2020-11-26 | Outpatient (REF) | payer MEDICARE, OTHER ==
[2020-11-26 13:23] LABS: HEMATOCRIT 41.6 % (36.0-47.0); HEMOGLOBIN 13.2 g/dl (12.0-15.5); MEAN CORPUSCULAR HEMOGLOBIN 29.5 pg (27.0-33.0); MEAN CORPUSCULAR HGB CONC 31.7 g/dl (32.0-36.5); MEAN CORPUSCULAR VOLUME 93.1 fl (80.0-96.0); PLATELET COUNT, AUTOMATED 265 10^3/uL (150-450); RED BLOOD COUNT 4.47 10^6/uL (4.00-5.40); WHITE BLOOD COUNT 4.9 10^3/uL (4.0-10.0)
[2020-11-26 13:34] LABS: INR 2.75; PROTHROMBIN TIME 29.7 SECONDS (12.5-14.3)
== END ==
LOC: M LABDRWAD 12:20
PROVIDERS: ATTEND Internal Medicine Pulmonary Disease
DX: Z86.711 Personal history of pulmonary embolism (principal); Z79.01 Long term (current) use of anticoagulants

== ENCOUNTER → 2020-12-24 | Outpatient (REF) | payer MEDICARE, OTHER ==
[2020-12-24 13:38] LABS: INR 2.65; PROTHROMBIN TIME 28.9 SECONDS (12.5-14.3)
== END ==
LOC: M LABDRWAD 12:27
PROVIDERS: ATTEND Internal Medicine Pulmonary Disease
DX: Z86.711 Personal history of pulmonary embolism (principal); Z79.01 Long term (current) use of anticoagulants

== ENCOUNTER → 2021-01-20 | Outpatient (REF) | payer MEDICARE, OTHER ==
[2021-01-20 17:12] LABS: HEMATOCRIT 39.2 % (36.0-47.0); HEMOGLOBIN 12.8 g/dl (12.0-15.5); MEAN CORPUSCULAR HEMOGLOBIN 30.6 pg (27.0-33.0); MEAN CORPUSCULAR HGB CONC 32.7 g/dl (32.0-36.5); MEAN CORPUSCULAR VOLUME 93.8 fl (80.0-96.0); PLATELET COUNT, AUTOMATED 262 10^3/uL (150-450); RED BLOOD COUNT 4.18 10^6/uL (4.00-5.40); WHITE BLOOD COUNT 5.4 10^3/uL (4.0-10.0)
[2021-01-20 17:28] LABS: INR 2.53; PROTHROMBIN TIME 27.8 SECONDS (12.5-14.3)
== END ==
LOC: M LABDRWAD 16:25
PROVIDERS: ATTEND Internal Medicine Pulmonary Disease
DX: Z86.711 Personal history of pulmonary embolism (principal); Z79.01 Long term (current) use of anticoagulants

== ENCOUNTER → 2021-03-03 | Outpatient (REF) | payer MEDICARE, OTHER ==
[2021-03-03 13:04] LABS: INR 3.13; PROTHROMBIN TIME 32.9 SECONDS (12.5-14.3)
== END ==
LOC: M LABDRWAD 12:33
PROVIDERS: ATTEND Internal Medicine Pulmonary Disease
DX: Z51.81 Encounter for therapeutic drug level monitoring (principal); Z79.01 Long term (current) use of anticoagulants; Z86.711 Personal history of pulmonary embolism

== ENCOUNTER → 2021-03-31 | Outpatient (REF) | payer MEDICARE, OTHER ==
[2021-03-31 13:21] LABS: INR 3.45; PROTHROMBIN TIME 35.5 SECONDS (12.5-14.3)
== END ==
LOC: M LABDRWAD 12:17
PROVIDERS: ATTEND Internal Medicine Pulmonary Disease
DX: Z51.81 Encounter for therapeutic drug level monitoring (principal); Z79.01 Long term (current) use of anticoagulants; Z86.711 Personal history of pulmonary embolism

== ENCOUNTER 2021-04-09 15:31 | Emergency (ER) | payer MEDICARE, OTHER ==
[~2021-04-09] VITALS: Ht 167.6 cm; Wt 90.9 kg
--- NOTE | 2021-04-09 15:56 | REP ---
INDICATION: fall/blood thinners COMPARISON: None. TECHNIQUE: Axial noncontrast images from the skull base to the thoracic inlet with coronal reformations. This CT examination was performed using the following dose reduction techniques: Automated exposure control, adjustment of mA and/or kv according to the patient's size, and use of iterative reconstruction technique. FINDINGS: Atrophy with periventricular leukomalacia and microvascular ischemic changes are appreciated. The ventricles and sulci are symmetric. Burk-white differentiation is maintained. There is no evidence for acute intracranial hemorrhage, mass/mass effect, pathology or infarction. No extra-axial fluid collection. Calvarium is intact. Paranasal sinuses and mastoid air cells are clear. IMPRESSION: Atrophy and microvascular ischemic changes. No acute intracranial hemorrhage, infarction, or mass/mass effect. <Electronically signed by Piero Greenberg > 04/09/21 [id number]
--- NOTE | 2021-04-09 15:57 | REP ---
INDICATION: head injury blood thinnenrs COMPARISON: None. TECHNIQUE: Axial noncontrast images from the skull base to the thoracic inlet with coronal and sagittal re-formations This CT examination was performed using the following dose reduction techniques: Automated exposure control, adjustment of mA and/or kv according to the patient's size, and use of iterative reconstruction technique. FINDINGS: Normal alignment and lordosis is maintained. Cervical vertebral bodies including transverse processes and spinous processes are intact and there is no evidence for acute fracture / compression injury or subluxation. Spinal canal is patent. Posterior elements are intact. Paravertebral soft tissues are normal. IMPRESSION: Multilevel age-related changes. No evidence for acute pathology or trauma/injury. <Electronically signed by Piero Greenberg > 04/09/21 [id number]
[2021-04-09 20:07] VITALS: BP 124/71
== END 2021-04-09 20:09 | disposition home or self-care (01) ==
LOC: M ED 15:31
DX: S00.03XA Contusion of scalp, initial encounter (principal); W22.8XXA Striking against or struck by other objects, initial encounter; Y92.018 Other place in single-family (private) house as the place of occurrence of the external cause; Z79.01 Long term (current) use of anticoagulants; Z88.1 Allergy status to other antibiotic agents; Z88.2 Allergy status to sulfonamides

== ENCOUNTER → 2021-04-21 | Outpatient (REF) | payer MEDICARE, OTHER ==
[2021-04-21 13:06] LABS: HEMATOCRIT 38.4 % (36.0-47.0); HEMOGLOBIN 12.3 g/dl (12.0-15.5); MEAN CORPUSCULAR VOLUME 93.7 fl (80.0-96.0); PLATELET COUNT, AUTOMATED 253 10^3/uL (150-450); WHITE BLOOD COUNT 4.6 10^3/uL (4.0-10.0)
[2021-04-21 13:16] LABS: INR 3.55; PROTHROMBIN TIME 36.3 SECONDS (12.5-14.3)
== END ==
LOC: M LABDRWAD 12:35
PROVIDERS: ATTEND Internal Medicine Pulmonary Disease
DX: Z86.711 Personal history of pulmonary embolism (principal)

== ENCOUNTER → 2021-05-19 | Outpatient (REF) | payer MEDICARE, OTHER ==
[2021-05-19 17:25] LABS: INR 2.61; PROTHROMBIN TIME 28.5 SECONDS (12.5-14.3)
== END ==
LOC: M LABDRWAD 16:26
PROVIDERS: ATTEND Internal Medicine Pulmonary Disease
DX: Z86.711 Personal history of pulmonary embolism (principal)

== ENCOUNTER → 2021-06-16 | Outpatient (REF) | payer MEDICARE, OTHER ==
[2021-06-16 18:12] LABS: INR 2.59; PROTHROMBIN TIME 28.1 SECONDS (12.7-14.5)
== END ==
LOC: M LAB REF 16:46 → M LABDRWAD 16:46
PROVIDERS: ATTEND Internal Medicine Pulmonary Disease
DX: Z51.81 Encounter for therapeutic drug level monitoring (principal); Z79.01 Long term (current) use of anticoagulants; Z86.711 Personal history of pulmonary embolism

== ENCOUNTER → 2021-07-21 | Outpatient (REF) | payer MEDICARE, OTHER ==
[2021-07-21 17:34] LABS: HEMATOCRIT 38.6 % (36.0-47.0); HEMOGLOBIN 12.3 g/dl (12.0-15.5); MEAN CORPUSCULAR HEMOGLOBIN 30.1 pg (27.0-33.0); MEAN CORPUSCULAR HGB CONC 31.9 g/dl (32.0-36.5); MEAN CORPUSCULAR VOLUME 94.4 fl (80.0-96.0); PLATELET COUNT, AUTOMATED 236 10^3/uL (150-450); RED BLOOD COUNT 4.09 10^6/uL (4.00-5.40)
[2021-07-21 17:45] LABS: INR 3.29; PROTHROMBIN TIME 33.7 SECONDS (12.7-14.5)
== END ==
LOC: M LABDRWAD 17:03 → M LAB REF 17:03
PROVIDERS: ATTEND Internal Medicine Pulmonary Disease
DX: Z86.711 Personal history of pulmonary embolism (principal)

== ENCOUNTER → 2021-08-12 | Outpatient (REF) | payer MEDICARE, OTHER ==
[2021-08-12 16:30] LABS: INR 3.37; PROTHROMBIN TIME 34.4 SECONDS (12.7-14.5)
== END ==
LOC: M LABDRWAD 16:05
PROVIDERS: ATTEND Internal Medicine Pulmonary Disease
DX: Z86.711 Personal history of pulmonary embolism (principal)

== ENCOUNTER → 2021-08-18 | Outpatient (CLI) | payer MEDICARE, OTHER ==
--- NOTE | 2021-08-18 12:53 | REPMRS ---
Patient History The patient states she had a clinical breast exam in 2020. Family history of prostate cancer at age 50 or over in father, colorectal cancer at age 50 or over in paternal grandfather. No Hormone Replacement Therapy Tomosynthesis is performed. Volpara breast density is b. [facility] lifetime risk of breast cancer 3.5%. No breast complaints today Patient signed the MRS sheet Priors on PACS Patient Identification Verified Digital Woman Screen Mammo: August 18, 2021 - Exam #: [id number] Bilateral CC and MLO view(s) were taken. Technologist: Ana Jimenez, Technologist Prior study comparison: March 27, 2020, bilateral digital woman screen mammo performed at [facility]. January 19, 2019, bilateral digital woman screen mammo performed at [facility]. FINDINGS: There are scattered fibroglandular densities. There has been no change in the appearance of the mammogram from the prior studies. There is a mild amount of residual fibroglandular tissue which is fairly symmetric. There is no interval development of dominant mass, architectural distortion, or clustered microcalcification suggestive of malignancy. Assessment: BI-RADS/ACR category 1 mammogram. Negative Mammogram. Recommendation Routine screening mammogram in 1 year (for women over age 40). This mammogram was interpreted with the aid of an FDA-approved computer-aided dectection system. Electronically Signed By: Gerhard Burk MD 08/18/21 [id number]
== END ==
LOC: M WHC 10:38
PROVIDERS: ATTEND Nurse Practitioner Women's Health
DX: Z01.419 Encounter for gynecological examination (general) (routine) without abnormal findings (principal); Z12.31 Encounter for screening mammogram for malignant neoplasm of breast
CPT/HCPCS: 77063; 77067; G0101

== ENCOUNTER → 2021-09-01 | Outpatient (REF) | payer MEDICARE, OTHER ==
[2021-09-01 13:05] LABS: INR 2.91; PROTHROMBIN TIME 30.7 SECONDS (12.7-14.5)
== END ==
LOC: M LABDRWAD 12:33
PROVIDERS: ATTEND Internal Medicine Pulmonary Disease
DX: Z86.711 Personal history of pulmonary embolism (principal)

== ENCOUNTER → 2021-09-28 | Outpatient (REF) | payer MEDICARE, OTHER ==
[2021-09-28 16:20] LABS: INR 2.52; PROTHROMBIN TIME 27.5 SECONDS (12.7-14.5)
== END ==
LOC: M LABDRWAD 15:54
PROVIDERS: ATTEND Internal Medicine Pulmonary Disease
DX: Z86.711 Personal history of pulmonary embolism (principal)

== ENCOUNTER → 2021-10-27 | Outpatient (REF) | payer MEDICARE, OTHER ==
[2021-10-27 17:54] LABS: HEMATOCRIT 39.8 % (36.0-47.0); HEMOGLOBIN 12.7 g/dl (12.0-15.5); MEAN CORPUSCULAR HGB CONC 31.9 g/dl (32.0-36.5); MEAN CORPUSCULAR VOLUME 94.1 fl (80.0-96.0); PLATELET COUNT, AUTOMATED 268 10^3/uL (150-450); RED BLOOD COUNT 4.23 10^6/uL (4.00-5.40); WHITE BLOOD COUNT 5.1 10^3/uL (4.0-10.0)
[2021-10-27 18:15] LABS: INR 2.94; PROTHROMBIN TIME 30.9 SECONDS (12.7-14.5)
== END ==
LOC: M LABDRWAD 16:44
PROVIDERS: ATTEND Internal Medicine Pulmonary Disease
DX: Z86.711 Personal history of pulmonary embolism (principal)

== ENCOUNTER → 2021-11-24 | Outpatient (REF) | payer MEDICARE, OTHER ==
[2021-11-24 16:38] LABS: INR 2.97; PROTHROMBIN TIME 31.2 SECONDS (12.7-14.5)
== END ==
LOC: M LABDRWAD 15:57
PROVIDERS: ATTEND Internal Medicine Pulmonary Disease
DX: Z86.711 Personal history of pulmonary embolism (principal)

== ENCOUNTER → 2021-12-10 | Outpatient (REF) | payer MEDICARE, OTHER ==
[2021-12-10 13:05] LABS: INR 2.04; PROTHROMBIN TIME 23.4 SECONDS (12.7-14.5)
== END ==
LOC: M LABDRWAD 12:20
PROVIDERS: ATTEND Internal Medicine Pulmonary Disease
DX: Z86.711 Personal history of pulmonary embolism (principal)

== ENCOUNTER → 2021-12-14 | Outpatient (REF) | payer MEDICARE, OTHER ==
[2021-12-14 13:26] LABS: INR 2.53; PROTHROMBIN TIME 27.6 SECONDS (12.7-14.5)
== END ==
LOC: M LABDRWAD 12:33
PROVIDERS: ATTEND Internal Medicine Pulmonary Disease
DX: Z86.711 Personal history of pulmonary embolism (principal)

== ENCOUNTER → 2021-12-17 | Outpatient (CLI) | payer MEDICARE, OTHER | LOC: M RAD 13:22 | PROVIDERS: ATTEND Physician Assistant | DX: Z86.711 Personal history of pulmonary embolism (principal); Z79.01 Long term (current) use of anticoagulants; I87.9 Disorder of vein, unspecified ==

== ENCOUNTER → 2021-12-17 | Outpatient (CLI) | payer MEDICARE, OTHER ==
[2021-12-17 14:20] LABS: INR 2.15; PROTHROMBIN TIME 24.4 SECONDS (12.7-14.5)
== END ==
LOC: M LAB 13:29
PROVIDERS: ATTEND Internal Medicine Pulmonary Disease
DX: Z86.711 Personal history of pulmonary embolism (principal); Z79.01 Long term (current) use of anticoagulants

== ENCOUNTER → 2021-12-21 | Outpatient (CLI) | payer MEDICARE, OTHER ==
[2021-12-21 15:04] LABS: INR 2.87; PROTHROMBIN TIME 30.4 SECONDS (12.7-14.5)
== END ==
LOC: M LAB 13:52
PROVIDERS: ATTEND Internal Medicine Pulmonary Disease
DX: Z86.711 Personal history of pulmonary embolism (principal)

== ENCOUNTER → 2021-12-28 | Outpatient (REF) | payer MEDICARE, OTHER ==
[2021-12-28 12:51] LABS: INR 2.22
== END ==
LOC: M LABDRWAD 12:17
PROVIDERS: ATTEND Internal Medicine Pulmonary Disease
DX: Z86.711 Personal history of pulmonary embolism (principal)

== ENCOUNTER → 2022-01-11 | Outpatient (REF) | payer MEDICARE, OTHER ==
[2022-01-11 17:13] LABS: HEMATOCRIT 39.7 % (36.0-47.0); HEMOGLOBIN 12.9 g/dl (12.0-15.5); MEAN CORPUSCULAR HEMOGLOBIN 30.2 pg (27.0-33.0); MEAN CORPUSCULAR HGB CONC 32.5 g/dl (32.0-36.5); PLATELET COUNT, AUTOMATED 250 10^3/uL (150-450); RED BLOOD COUNT 4.27 10^6/uL (4.00-5.40); WHITE BLOOD COUNT 5.2 10^3/uL (4.0-10.0)
[2022-01-11 17:33] LABS: INR 2.81; PROTHROMBIN TIME 29.9 SECONDS (12.7-14.5)
== END ==
LOC: M WUC 16:09
PROVIDERS: ATTEND Internal Medicine Pulmonary Disease
DX: Z86.711 Personal history of pulmonary embolism (principal)

== ENCOUNTER → 2022-01-18 | Outpatient (REF) | payer MEDICARE, OTHER ==
[2022-01-18 16:38] LABS: INR 3.04; PROTHROMBIN TIME 31.8 SECONDS (12.7-14.5)
== END ==
LOC: M LABDRWAD 15:44
PROVIDERS: ATTEND Internal Medicine Pulmonary Disease
DX: Z86.711 Personal history of pulmonary embolism (principal)

== ENCOUNTER → 2022-01-25 | Outpatient (REF) | payer MEDICARE, OTHER ==
[2022-01-25 17:33] LABS: INR 3.36; PROTHROMBIN TIME 34.3 SECONDS (12.7-14.5)
== END ==
LOC: M LABDRWAD 16:33
PROVIDERS: ATTEND Internal Medicine Pulmonary Disease
DX: Z86.711 Personal history of pulmonary embolism (principal)

== ENCOUNTER → 2022-02-08 | Outpatient (CLI) | payer MEDICARE, OTHER ==
[2022-02-08 18:48] LABS: INR 2.13; PROTHROMBIN TIME 24.2 SECONDS (12.7-14.5)
== END ==
LOC: M ADAMS 12:01
PROVIDERS: ATTEND Internal Medicine Pulmonary Disease
DX: Z51.81 Encounter for therapeutic drug level monitoring (principal); Z79.01 Long term (current) use of anticoagulants; Z86.711 Personal history of pulmonary embolism

== ENCOUNTER → 2022-02-22 | Outpatient (REF) | payer MEDICARE, OTHER ==
[2022-02-22 17:01] LABS: INR 3.27; PROTHROMBIN TIME 33.6 SECONDS (12.7-14.5)
== END ==
LOC: M LABDRWAD 16:06
PROVIDERS: ATTEND Internal Medicine Pulmonary Disease
DX: Z86.711 Personal history of pulmonary embolism (principal)

== ENCOUNTER → 2022-03-15 | Outpatient (CLI) | payer MEDICARE, OTHER ==
[2022-03-15 14:33] LABS: INR 3.62; PROTHROMBIN TIME 36.3 SECONDS (12.7-14.5)
== END ==
LOC: M ADAMS 11:35
PROVIDERS: ATTEND Internal Medicine Pulmonary Disease
DX: Z86.711 Personal history of pulmonary embolism (principal)

== ENCOUNTER → 2022-04-06 | Outpatient (CLI) | payer MEDICARE, OTHER ==
[2022-04-06 17:08] LABS: HEMATOCRIT 39.2 % (36.0-47.0); HEMOGLOBIN 12.5 g/dl (12.0-15.5); MEAN CORPUSCULAR HEMOGLOBIN 29.9 pg (27.0-33.0); MEAN CORPUSCULAR HGB CONC 31.9 g/dl (32.0-36.5); MEAN CORPUSCULAR VOLUME 93.8 fl (80.0-96.0); PLATELET COUNT, AUTOMATED 254 10^3/uL (150-450); RED BLOOD COUNT 4.18 10^6/uL (4.00-5.40); WHITE BLOOD COUNT 5.3 10^3/uL (4.0-10.0)
[2022-04-06 17:26] LABS: INR 3.61; PROTHROMBIN TIME 36.2 SECONDS (12.7-14.5)
== END ==
LOC: M ADAMS 12:08
PROVIDERS: ATTEND Internal Medicine Pulmonary Disease
DX: Z86.711 Personal history of pulmonary embolism (principal); Z79.01 Long term (current) use of anticoagulants

== ENCOUNTER → 2022-05-03 | Outpatient (CLI) | payer MEDICARE, OTHER ==
[2022-05-03 13:09] LABS: INR 3.51; PROTHROMBIN TIME 35.5 SECONDS (12.7-14.5)
== END ==
LOC: M ADAMS 11:43
PROVIDERS: ATTEND Internal Medicine Pulmonary Disease
DX: Z86.711 Personal history of pulmonary embolism (principal); Z79.01 Long term (current) use of anticoagulants

== ENCOUNTER → 2022-06-01 | Outpatient (CLI) | payer MEDICARE, OTHER ==
[2022-06-01 17:43] LABS: INR 3.64; PROTHROMBIN TIME 36.5 SECONDS (12.7-14.5)
== END ==
LOC: M ADAMS 13:29
PROVIDERS: ATTEND Internal Medicine Pulmonary Disease
DX: Z86.711 Personal history of pulmonary embolism (principal); Z79.01 Long term (current) use of anticoagulants

== ENCOUNTER → 2022-06-29 | Outpatient (CLI) | payer MEDICARE, OTHER ==
[2022-06-29 13:39] LABS: HEMATOCRIT 41.1 % (36.0-47.0); HEMOGLOBIN 13.3 g/dl (12.0-15.5); MEAN CORPUSCULAR HGB CONC 32.4 g/dl (32.0-36.5); MEAN CORPUSCULAR VOLUME 92.8 fl (80.0-96.0); PLATELET COUNT, AUTOMATED 310 10^3/uL (150-450); RED BLOOD COUNT 4.43 10^6/uL (4.00-5.40); WHITE BLOOD COUNT 6.6 10^3/uL (4.0-10.0)
[2022-06-29 14:04] LABS: PROTHROMBIN TIME 64.5 SECONDS (12.7-14.5)
[2022-06-29 15:15] LABS: INR 7.69
== END ==
LOC: M ADAMS 10:57
PROVIDERS: ATTEND Internal Medicine Pulmonary Disease
DX: Z86.711 Personal history of pulmonary embolism (principal); Z79.01 Long term (current) use of anticoagulants

== ENCOUNTER → 2022-07-02 | Outpatient (CLI) | payer MEDICARE, OTHER ==
[2022-07-02 10:23] LABS: INR 2.84; PROTHROMBIN TIME 30.2 SECONDS (12.7-14.5)
== END ==
LOC: M LAB 09:24
PROVIDERS: ATTEND Internal Medicine Pulmonary Disease
DX: Z86.711 Personal history of pulmonary embolism (principal); Z79.01 Long term (current) use of anticoagulants

== ENCOUNTER → 2022-07-06 | Outpatient (CLI) | payer MEDICARE, OTHER | LOC: M WHC 08:22 | PROVIDERS: ATTEND Advanced Practice Midwife | DX: Z53.9 Procedure and treatment not carried out, unspecified reason (principal) ==

== ENCOUNTER → 2022-07-09 | Outpatient (CLI) | payer MEDICARE, OTHER ==
[2022-07-09 12:49] LABS: INR 3.16; PROTHROMBIN TIME 32.7 SECONDS (12.7-14.5)
== END ==
LOC: M LAB 11:38
PROVIDERS: ATTEND Internal Medicine Pulmonary Disease
DX: Z86.711 Personal history of pulmonary embolism (principal); Z79.01 Long term (current) use of anticoagulants

== ENCOUNTER → 2022-07-15 | Outpatient (CLI) | payer MEDICARE, OTHER ==
[2022-07-15 13:14] LABS: INR 4.53; PROTHROMBIN TIME 43.1 SECONDS (12.7-14.5)
== END ==
LOC: M ADAMS 09:45
PROVIDERS: ATTEND Internal Medicine Pulmonary Disease
DX: Z86.711 Personal history of pulmonary embolism (principal); Z79.01 Long term (current) use of anticoagulants

== ENCOUNTER → 2022-07-22 | Outpatient (CLI) | payer MEDICARE, OTHER ==
[2022-07-22 11:31] LABS: INR 3.46; PROTHROMBIN TIME 35.1 SECONDS (12.7-14.5)
== END ==
LOC: M LAB 10:13
PROVIDERS: ATTEND Internal Medicine Pulmonary Disease
DX: Z86.711 Personal history of pulmonary embolism (principal); Z79.01 Long term (current) use of anticoagulants

== ENCOUNTER → 2022-08-06 | Outpatient (REF) | payer MEDICARE, OTHER ==
[2022-08-06 13:38] LABS: INR 3.62; PROTHROMBIN TIME 36.3 SECONDS (12.7-14.5)
== END ==
LOC: M LABDRWAD 13:01
PROVIDERS: ATTEND Internal Medicine Pulmonary Disease
DX: Z86.711 Personal history of pulmonary embolism (principal); Z79.01 Long term (current) use of anticoagulants

== ENCOUNTER → 2022-08-19 | Outpatient (REF) | payer MEDICARE, OTHER ==
[2022-08-19 13:54] LABS: INR 3.37; PROTHROMBIN TIME 34.6 SECONDS (12.5-14.5)
== END ==
LOC: M LABDRWAD 12:36
PROVIDERS: ATTEND Internal Medicine Pulmonary Disease
DX: Z86.711 Personal history of pulmonary embolism (principal); Z79.01 Long term (current) use of anticoagulants

== ENCOUNTER → 2022-08-20 | Outpatient (CLI) | payer MEDICARE, OTHER | LOC: M WHC 09:25 | PROVIDERS: ATTEND Advanced Practice Midwife | DX: Z12.31 Encounter for screening mammogram for malignant neoplasm of breast (principal) ==

== ENCOUNTER → 2022-09-08 | Outpatient (CLI) | payer MEDICARE, OTHER ==
[2022-09-08 13:10] LABS: HEMATOCRIT 40.9 % (36.0-47.0); HEMOGLOBIN 12.8 g/dl (12.0-15.5); MEAN CORPUSCULAR HEMOGLOBIN 29.7 pg (27.0-33.0); MEAN CORPUSCULAR HGB CONC 31.3 g/dl (32.0-36.5); MEAN CORPUSCULAR VOLUME 94.9 fl (80.0-96.0); PLATELET COUNT, AUTOMATED 254 10^3/uL (150-450); RED BLOOD COUNT 4.31 10^6/uL (4.00-5.40); WHITE BLOOD COUNT 5.2 10^3/uL (4.0-10.0)
[2022-09-08 13:30] LABS: INR 3.26; PROTHROMBIN TIME 33.7 SECONDS (12.5-14.5)
== END ==
LOC: M LABDRWAD 09:23
PROVIDERS: ATTEND Internal Medicine Pulmonary Disease
DX: Z86.711 Personal history of pulmonary embolism (principal); Z79.01 Long term (current) use of anticoagulants

== ENCOUNTER → 2022-10-04 | Outpatient (REF) | payer MEDICARE, OTHER ==
[2022-10-04 13:23] LABS: INR 4.34; PROTHROMBIN TIME 42.2 SECONDS (12.5-14.5)
== END ==
LOC: M LABDRWAD 12:28
PROVIDERS: ATTEND Internal Medicine Pulmonary Disease
DX: Z86.711 Personal history of pulmonary embolism (principal); Z79.01 Long term (current) use of anticoagulants

== ENCOUNTER → 2022-10-08 | Outpatient (REF) | payer MEDICARE, OTHER ==
[2022-10-08 13:52] LABS: INR 2.39; PROTHROMBIN TIME 26.4 SECONDS (12.5-14.5)
== END ==
LOC: M LABDRWAD 12:20
PROVIDERS: ATTEND Internal Medicine Pulmonary Disease
DX: Z86.711 Personal history of pulmonary embolism (principal); Z79.01 Long term (current) use of anticoagulants

== ENCOUNTER → 2022-10-15 | Outpatient (REF) | payer MEDICARE, OTHER ==
[2022-10-15 13:25] LABS: INR 3.23; PROTHROMBIN TIME 33.5 SECONDS (12.5-14.5)
== END ==
LOC: M LABDRWAD 12:22
PROVIDERS: ATTEND Internal Medicine Pulmonary Disease
DX: Z86.711 Personal history of pulmonary embolism (principal); Z79.01 Long term (current) use of anticoagulants

== ENCOUNTER → 2022-10-27 | Outpatient (REF) | payer MEDICARE, OTHER ==
[2022-10-27 13:28] LABS: HEMATOCRIT 41.2 % (36.0-47.0); HEMOGLOBIN 12.8 g/dl (12.0-15.5); MEAN CORPUSCULAR HEMOGLOBIN 29.5 pg (27.0-33.0); MEAN CORPUSCULAR HGB CONC 31.1 g/dl (32.0-36.5); MEAN CORPUSCULAR VOLUME 94.9 fl (80.0-96.0); PLATELET COUNT, AUTOMATED 263 10^3/uL (150-450); RED BLOOD COUNT 4.34 10^6/uL (4.00-5.40)
== END ==
LOC: M LABDRWAD 12:36
PROVIDERS: ATTEND Internal Medicine Pulmonary Disease
DX: Z86.711 Personal history of pulmonary embolism (principal); Z79.01 Long term (current) use of anticoagulants

== ENCOUNTER → 2022-11-03 | Outpatient (REF) | payer MEDICARE, OTHER ==
[2022-11-03 13:34] LABS: INR 2.57
== END ==
LOC: M LABDRWAD 12:28
PROVIDERS: ATTEND Internal Medicine Pulmonary Disease
DX: Z79.01 Long term (current) use of anticoagulants (principal); Z86.711 Personal history of pulmonary embolism

== ENCOUNTER → 2022-11-10 | Outpatient (REF) | payer MEDICARE, OTHER ==
[2022-11-10 13:46] LABS: INR 3.24; PROTHROMBIN TIME 33.6 SECONDS (12.5-14.5)
== END ==
LOC: M LABDRWAD 12:58
PROVIDERS: ATTEND Internal Medicine Pulmonary Disease
DX: Z86.711 Personal history of pulmonary embolism (principal); Z79.01 Long term (current) use of anticoagulants

== ENCOUNTER → 2022-11-24 | Outpatient (REF) | payer MEDICARE, OTHER ==
[2022-11-24 13:48] LABS: INR 3.62; PROTHROMBIN TIME 36.6 SECONDS (12.5-14.5)
== END ==
LOC: M LABDRWAD 12:29
PROVIDERS: ATTEND Internal Medicine Pulmonary Disease
DX: Z86.711 Personal history of pulmonary embolism (principal); Z79.01 Long term (current) use of anticoagulants

== ENCOUNTER → 2022-12-01 | Outpatient (REF) | payer MEDICARE, OTHER ==
[2022-12-01 14:03] LABS: INR 3.23; PROTHROMBIN TIME 33.5 SECONDS (12.5-14.5)
== END ==
LOC: M LABDRWAD 12:33
PROVIDERS: ATTEND Internal Medicine Pulmonary Disease
DX: Z79.01 Long term (current) use of anticoagulants (principal); Z86.711 Personal history of pulmonary embolism

== ENCOUNTER → 2022-12-15 | Outpatient (REF) | payer MEDICARE, OTHER ==
[2022-12-15 13:14] LABS: INR 2.19; PROTHROMBIN TIME 24.7 SECONDS (12.5-14.5)
== END ==
LOC: M LABDRWAD 12:25
PROVIDERS: ATTEND Internal Medicine Pulmonary Disease
DX: Z86.711 Personal history of pulmonary embolism (principal); Z79.01 Long term (current) use of anticoagulants

== ENCOUNTER → 2022-12-29 | Outpatient (REF) | payer MEDICARE, OTHER ==
[2022-12-29 14:26] LABS: INR 3.06; PROTHROMBIN TIME 32.1 SECONDS (12.5-14.5)
== END ==
LOC: M LABDRWAD 13:43
PROVIDERS: ATTEND Internal Medicine Pulmonary Disease
DX: Z86.711 Personal history of pulmonary embolism (principal); Z79.01 Long term (current) use of anticoagulants

== ENCOUNTER → 2023-01-12 | Outpatient (REF) | payer MEDICARE, OTHER ==
[2023-01-12 13:47] LABS: HEMATOCRIT 40.6 % (36.0-47.0); HEMOGLOBIN 12.9 g/dl (12.0-15.5); MEAN CORPUSCULAR HEMOGLOBIN 29.9 pg (27.0-33.0); MEAN CORPUSCULAR HGB CONC 31.8 g/dl (32.0-36.5); MEAN CORPUSCULAR VOLUME 94.2 fl (80.0-96.0); PLATELET COUNT, AUTOMATED 253 10^3/uL (150-450); RED BLOOD COUNT 4.31 10^6/uL (4.00-5.40); WHITE BLOOD COUNT 4.7 10^3/uL (4.0-10.0)
[2023-01-12 13:58] LABS: INR 2.87; PROTHROMBIN TIME 30.5 SECONDS (12.5-14.5)
== END ==
LOC: M LABDRWAD 12:49
PROVIDERS: ATTEND Internal Medicine Pulmonary Disease
DX: Z79.01 Long term (current) use of anticoagulants (principal); Z86.711 Personal history of pulmonary embolism

== ENCOUNTER → 2023-01-26 | Outpatient (REF) | payer MEDICARE, OTHER ==
[2023-01-26 13:48] LABS: INR 2.95; PROTHROMBIN TIME 31.2 SECONDS (12.5-14.5)
== END ==
LOC: M LABDRWAD 12:43
PROVIDERS: ATTEND Internal Medicine Pulmonary Disease
DX: Z79.01 Long term (current) use of anticoagulants (principal); Z86.711 Personal history of pulmonary embolism

== ENCOUNTER → 2023-02-15 | Outpatient (REF) | payer MEDICARE, OTHER ==
[2023-02-15 13:53] LABS: HEMATOCRIT 41.2 % (36.0-47.0); MEAN CORPUSCULAR HGB CONC 31.6 g/dl (32.0-36.5); MEAN CORPUSCULAR VOLUME 95.2 fl (80.0-96.0); PLATELET COUNT, AUTOMATED 263 10^3/uL (150-450); RED BLOOD COUNT 4.33 10^6/uL (4.00-5.40); WHITE BLOOD COUNT 4.4 10^3/uL (4.0-10.0)
[2023-02-15 14:10] LABS: INR 2.99; PROTHROMBIN TIME 31.5 SECONDS (12.5-14.5)
== END ==
LOC: M LABDRWAD 13:00
PROVIDERS: ATTEND Internal Medicine Pulmonary Disease
DX: Z86.711 Personal history of pulmonary embolism (principal); Z79.01 Long term (current) use of anticoagulants

== ENCOUNTER → 2023-03-16 | Outpatient (REF) | payer MEDICARE, OTHER ==
[2023-03-16 14:43] LABS: INR 2.83; PROTHROMBIN TIME 30.2 SECONDS (12.5-14.5)
== END ==
LOC: M LABDRWAD 12:45
PROVIDERS: ATTEND Internal Medicine Pulmonary Disease
DX: Z86.711 Personal history of pulmonary embolism (principal); Z79.01 Long term (current) use of anticoagulants

== ENCOUNTER → 2023-03-30 | Outpatient (REF) | payer MEDICARE, OTHER ==
[2023-03-30 14:28] LABS: INR 3.51; PROTHROMBIN TIME 35.7 SECONDS (12.5-14.5)
== END ==
LOC: M LABDRWAD 12:53
PROVIDERS: ATTEND Internal Medicine Pulmonary Disease
DX: Z86.711 Personal history of pulmonary embolism (principal)

== ENCOUNTER → 2023-04-27 | Outpatient (REF) | payer MEDICARE, OTHER ==
[2023-04-27 13:53] LABS: INR 3.33; PROTHROMBIN TIME 34.3 SECONDS (12.5-14.5)
== END ==
LOC: M LABDRWAD 12:58
PROVIDERS: ATTEND Internal Medicine Pulmonary Disease
DX: Z86.711 Personal history of pulmonary embolism (principal)

== ENCOUNTER → 2023-05-11 | Outpatient (REF) | payer MEDICARE, OTHER ==
[2023-05-11 14:16] LABS: HEMATOCRIT 41.4 % (36.0-47.0); HEMOGLOBIN 12.9 g/dl (12.0-15.5); MEAN CORPUSCULAR HEMOGLOBIN 29.8 pg (27.0-33.0); MEAN CORPUSCULAR HGB CONC 31.2 g/dl (32.0-36.5); MEAN CORPUSCULAR VOLUME 95.6 fl (80.0-96.0); PLATELET COUNT, AUTOMATED 259 10^3/uL (150-450); RED BLOOD COUNT 4.33 10^6/uL (4.00-5.40); WHITE BLOOD COUNT 4.4 10^3/uL (4.0-10.0)
[2023-05-11 14:31] LABS: INR 2.35; PROTHROMBIN TIME 26.1 SECONDS (12.5-14.5)
== END ==
LOC: M LABDRWAD 12:34
PROVIDERS: ATTEND Internal Medicine Pulmonary Disease
DX: Z86.711 Personal history of pulmonary embolism (principal); Z79.01 Long term (current) use of anticoagulants

== ENCOUNTER → 2023-06-08 | Outpatient (REF) | payer MEDICARE, OTHER ==
[2023-06-08 13:46] LABS: INR 3.94; PROTHROMBIN TIME 39.1 SECONDS (12.5-14.5)
== END ==
LOC: M LABDRWAD 12:20
PROVIDERS: ATTEND Internal Medicine Pulmonary Disease
DX: Z86.711 Personal history of pulmonary embolism (principal)

== ENCOUNTER → 2023-06-13 | Outpatient (CLI) | payer MEDICARE, OTHER ==
[2023-06-13 09:18] LABS: INR 1.78
== END ==
LOC: M LAB 08:27
PROVIDERS: ATTEND Internal Medicine Pulmonary Disease
DX: Z86.711 Personal history of pulmonary embolism (principal); Z79.01 Long term (current) use of anticoagulants

== ENCOUNTER → 2023-06-16 | Outpatient (REF) | payer MEDICARE, OTHER ==
[2023-06-16 17:43] LABS: INR 2.71; PROTHROMBIN TIME 28.1 SECONDS (12.5-14.5)
== END ==
LOC: M LABDRWAD 17:16
PROVIDERS: ATTEND Internal Medicine Pulmonary Disease
DX: Z86.711 Personal history of pulmonary embolism (principal)

== ENCOUNTER → 2023-06-23 | Outpatient (REF) | payer MEDICARE, OTHER ==
[2023-06-23 12:57] LABS: INR 3.4; PROTHROMBIN TIME 33.5 SECONDS (12.5-14.5)
== END ==
LOC: M LABDRWAD 12:20
PROVIDERS: ATTEND Internal Medicine Pulmonary Disease
DX: Z86.711 Personal history of pulmonary embolism (principal)

== ENCOUNTER → 2023-06-30 | Outpatient (REF) | payer MEDICARE, OTHER ==
[2023-06-30 13:07] LABS: INR 3.71; PROTHROMBIN TIME 35.9 SECONDS (12.5-14.5)
== END ==
LOC: M LABDRWAD 12:29
PROVIDERS: ATTEND Internal Medicine Pulmonary Disease
DX: Z09 Encounter for follow-up examination after completed treatment for conditions other than malignant neoplasm (principal); Z86.711 Personal history of pulmonary embolism

== ENCOUNTER → 2023-07-07 | Outpatient (CLI) | payer MEDICARE, OTHER ==
[2023-07-07 09:00] LABS: INR 3.63; PROTHROMBIN TIME 35.3 SECONDS (12.5-14.5)
== END ==
LOC: M LAB 08:21
PROVIDERS: ATTEND Internal Medicine Pulmonary Disease
DX: Z86.711 Personal history of pulmonary embolism (principal)

== ENCOUNTER → 2023-07-14 | Outpatient (REF) | payer MEDICARE, OTHER ==
[2023-07-14 13:52] LABS: INR 2.65; PROTHROMBIN TIME 27.6 SECONDS (12.5-14.5)
== END ==
LOC: M LABDRWAD 12:37
PROVIDERS: ATTEND Internal Medicine Pulmonary Disease
DX: Z86.711 Personal history of pulmonary embolism (principal)

== ENCOUNTER → 2023-07-21 | Outpatient (REF) | payer MEDICARE, OTHER ==
[2023-07-21 13:30] LABS: INR 2.42; PROTHROMBIN TIME 25.7 SECONDS (12.5-14.5)
== END ==
LOC: M LABDRWAD 12:28
PROVIDERS: ATTEND Internal Medicine Pulmonary Disease
DX: Z86.711 Personal history of pulmonary embolism (principal)

== ENCOUNTER → 2023-07-28 | Outpatient (CLI) | payer MEDICARE, OTHER ==
[2023-07-28 12:43] LABS: INR 3.27; PROTHROMBIN TIME 32.6 SECONDS (12.5-14.5)
== END ==
LOC: M LABDRWAD 09:19
PROVIDERS: ATTEND Internal Medicine Pulmonary Disease
DX: Z86.711 Personal history of pulmonary embolism (principal); Z79.01 Long term (current) use of anticoagulants

== ENCOUNTER → 2023-08-11 | Outpatient (CLI) | payer MEDICARE, OTHER ==
[2023-08-11 09:33] LABS: HEMATOCRIT 39.4 % (36.0-47.0); HEMOGLOBIN 12.8 g/dl (12.0-15.5); MEAN CORPUSCULAR HEMOGLOBIN 30.3 pg (27.0-33.0); MEAN CORPUSCULAR HGB CONC 32.5 g/dl (32.0-36.5); MEAN CORPUSCULAR VOLUME 93.4 fl (80.0-96.0); PLATELET COUNT, AUTOMATED 253 10^3/uL (150-450); RED BLOOD COUNT 4.22 10^6/uL (4.00-5.40); WHITE BLOOD COUNT 4.9 10^3/uL (4.0-10.0)
[2023-08-11 09:43] LABS: INR 3.45; PROTHROMBIN TIME 33.9 SECONDS (12.5-14.5)
== END ==
LOC: M LAB 08:24
PROVIDERS: ATTEND Internal Medicine Pulmonary Disease
DX: Z86.711 Personal history of pulmonary embolism (principal); Z79.01 Long term (current) use of anticoagulants

== ENCOUNTER → 2023-08-29 | Outpatient (REF) | payer MEDICARE, OTHER ==
[2023-08-29 13:25] LABS: INR 3.77; PROTHROMBIN TIME 36.4 SECONDS (12.5-14.5)
== END ==
LOC: M LABDRWAD 12:22
PROVIDERS: ATTEND Internal Medicine Pulmonary Disease
DX: Z79.01 Long term (current) use of anticoagulants (principal); Z86.711 Personal history of pulmonary embolism

== ENCOUNTER → 2023-09-05 | Outpatient (REF) | payer MEDICARE, OTHER ==
[2023-09-05 13:57] LABS: PROTHROMBIN TIME 50.8 SECONDS (12.5-14.5)
[2023-09-05 15:37] LABS: INR 5.94
== END ==
LOC: M LABDRWAD 12:46
PROVIDERS: ATTEND Internal Medicine Pulmonary Disease
DX: Z86.711 Personal history of pulmonary embolism (principal); Z79.01 Long term (current) use of anticoagulants

== ENCOUNTER → 2023-09-09 | Outpatient (REF) | payer MEDICARE, OTHER ==
[2023-09-09 13:50] LABS: INR 1.87; PROTHROMBIN TIME 20.8 SECONDS (12.5-14.5)
== END ==
LOC: M LABDRWAD 12:42
PROVIDERS: ATTEND Internal Medicine Pulmonary Disease
DX: Z86.711 Personal history of pulmonary embolism (principal)

== ENCOUNTER → 2023-09-12 | Outpatient (REF) | payer MEDICARE, OTHER ==
[2023-09-12 17:52] LABS: INR 1.97; PROTHROMBIN TIME 21.7 SECONDS (12.5-14.5)
== END ==
LOC: M LABDRWAD 12:24
PROVIDERS: ATTEND Internal Medicine Pulmonary Disease
DX: Z86.711 Personal history of pulmonary embolism (principal); Z79.01 Long term (current) use of anticoagulants

== ENCOUNTER → 2023-09-16 | Outpatient (REF) | payer MEDICARE, OTHER ==
[2023-09-16 13:40] LABS: INR 1.8; PROTHROMBIN TIME 20.3 SECONDS (12.5-14.5)
== END ==
LOC: M LABDRWAD 12:21
PROVIDERS: ATTEND Internal Medicine Pulmonary Disease
DX: Z86.711 Personal history of pulmonary embolism (principal); Z79.01 Long term (current) use of anticoagulants

== ENCOUNTER → 2023-09-27 | Outpatient (REF) | payer MEDICARE, OTHER ==
[2023-09-27 13:14] LABS: INR 2.26; PROTHROMBIN TIME 24.1 SECONDS (12.5-14.5)
== END ==
LOC: M LABDRWAD 12:29
PROVIDERS: ATTEND Internal Medicine Hematology
DX: Z86.711 Personal history of pulmonary embolism (principal); Z79.01 Long term (current) use of anticoagulants

== ENCOUNTER → 2023-10-03 | Outpatient (CLI) | payer MEDICARE, OTHER ==
[2023-10-03 13:07] LABS: HEMOGLOBIN 12.6 g/dl (12.0-15.5); MEAN CORPUSCULAR HEMOGLOBIN 30.4 pg (27.0-33.0); MEAN CORPUSCULAR HGB CONC 32.3 g/dl (32.0-36.5); PLATELET COUNT, AUTOMATED 281 10^3/uL (150-450); RED BLOOD COUNT 4.15 10^6/uL (4.00-5.40)
[2023-10-03 13:17] LABS: INR 1.91; PROTHROMBIN TIME 21.2 SECONDS (12.5-14.5)
== END ==
LOC: M LAB 12:01
PROVIDERS: ATTEND Internal Medicine Pulmonary Disease
DX: Z79.01 Long term (current) use of anticoagulants (principal)

== ENCOUNTER → 2023-10-10 | Outpatient (CLI) | payer MEDICARE, OTHER ==
[2023-10-10 13:34] LABS: INR 2.35; PROTHROMBIN TIME 24.9 SECONDS (12.5-14.5)
== END ==
LOC: M LABDRWAD 09:12
PROVIDERS: ATTEND Internal Medicine Pulmonary Disease
DX: Z86.711 Personal history of pulmonary embolism (principal); Z79.01 Long term (current) use of anticoagulants

== ENCOUNTER → 2023-10-17 | Outpatient (REF) | payer MEDICARE, OTHER ==
[2023-10-17 13:57] LABS: INR 1.92; PROTHROMBIN TIME 21.3 SECONDS (12.5-14.5)
== END ==
LOC: M LABDRWAD 12:57
PROVIDERS: ATTEND Internal Medicine Pulmonary Disease
DX: Z86.711 Personal history of pulmonary embolism (principal); Z79.01 Long term (current) use of anticoagulants

== ENCOUNTER → 2023-10-24 | Outpatient (REF) | payer MEDICARE, OTHER ==
[2023-10-24 13:42] LABS: INR 2.55; PROTHROMBIN TIME 26.5 SECONDS (12.5-14.5)
== END ==
LOC: M LABDRWAD 12:26
PROVIDERS: ATTEND Internal Medicine Pulmonary Disease
DX: Z09 Encounter for follow-up examination after completed treatment for conditions other than malignant neoplasm (principal); Z86.711 Personal history of pulmonary embolism; Z79.01 Long term (current) use of anticoagulants

== ENCOUNTER → 2023-11-08 | Outpatient (REF) | payer MEDICARE, OTHER ==
[2023-11-08 13:40] LABS: INR 2.18; PROTHROMBIN TIME 23.5 SECONDS (12.5-14.5)
== END ==
LOC: M LABWUC 12:33
PROVIDERS: ATTEND Internal Medicine Pulmonary Disease
DX: Z79.01 Long term (current) use of anticoagulants (principal); Z86.711 Personal history of pulmonary embolism

== ENCOUNTER → 2023-11-14 | Outpatient (REF) | payer MEDICARE, OTHER ==
[2023-11-14 13:27] LABS: INR 2.42; PROTHROMBIN TIME 25.4 SECONDS (12.5-14.5)
== END ==
LOC: M LABDRWAD 12:31
PROVIDERS: ATTEND Internal Medicine Pulmonary Disease
DX: Z79.01 Long term (current) use of anticoagulants (principal); Z86.711 Personal history of pulmonary embolism

== ENCOUNTER → 2023-11-21 | Outpatient (REF) | payer MEDICARE, OTHER ==
[2023-11-21 13:22] LABS: INR 2.79; PROTHROMBIN TIME 28.4 SECONDS (12.5-14.5)
== END ==
LOC: M LABDRWAD 12:23
PROVIDERS: ATTEND Internal Medicine Pulmonary Disease
DX: Z79.01 Long term (current) use of anticoagulants (principal); Z86.711 Personal history of pulmonary embolism

== ENCOUNTER → 2023-12-05 | Outpatient (REF) | payer MEDICARE, OTHER ==
[2023-12-05 14:33] LABS: INR 2.16; PROTHROMBIN TIME 23.3 SECONDS (12.5-14.5)
== END ==
LOC: M LABDRWAD 12:42
PROVIDERS: ATTEND Internal Medicine Pulmonary Disease
DX: Z79.01 Long term (current) use of anticoagulants (principal); Z86.711 Personal history of pulmonary embolism

== ENCOUNTER → 2023-12-12 | Outpatient (REF) | payer MEDICARE, OTHER ==
[2023-12-12 12:49] LABS: INR 2.45; PROTHROMBIN TIME 25.7 SECONDS (12.5-14.5)
== END ==
LOC: M LABDRWAD 12:18
PROVIDERS: ATTEND Internal Medicine Pulmonary Disease
DX: Z79.01 Long term (current) use of anticoagulants (principal); Z86.711 Personal history of pulmonary embolism

== ENCOUNTER → 2023-12-26 | Outpatient (REF) | payer MEDICARE, OTHER ==
[2023-12-26 13:15] LABS: INR 2.35; PROTHROMBIN TIME 24.9 SECONDS (12.5-14.5)
== END ==
LOC: M LABDRWAD 12:22
PROVIDERS: ATTEND Internal Medicine Pulmonary Disease
DX: Z79.01 Long term (current) use of anticoagulants (principal); Z86.711 Personal history of pulmonary embolism

== ENCOUNTER → 2023-12-26 | Outpatient (REF) | payer MEDICARE, OTHER | LOC: M SFHCWAGY 12:46 | PROVIDERS: ATTEND Nurse Practitioner Family | DX: R10.2 Pelvic and perineal pain (principal) ==

== ENCOUNTER → 2024-01-02 | Outpatient (REF) | payer MEDICARE, OTHER ==
[2024-01-02 13:28] LABS: INR 3.31; PROTHROMBIN TIME 32.4 SECONDS (12.5-14.5)
== END ==
LOC: M LABDRAWC 12:54
PROVIDERS: ATTEND Internal Medicine Pulmonary Disease
DX: Z79.01 Long term (current) use of anticoagulants (principal); Z86.711 Personal history of pulmonary embolism

== ENCOUNTER → 2024-01-09 | Outpatient (REF) | payer MEDICARE, OTHER ==
[2024-01-09 13:27] LABS: INR 3.24; PROTHROMBIN TIME 31.9 SECONDS (12.5-14.5)
== END ==
LOC: M LABDRWAD 12:34
PROVIDERS: ATTEND Internal Medicine Pulmonary Disease
DX: Z79.01 Long term (current) use of anticoagulants (principal); Z86.711 Personal history of pulmonary embolism

== ENCOUNTER → 2024-01-23 | Outpatient (REF) | payer MEDICARE, OTHER ==
[2024-01-23 12:43] LABS: HEMATOCRIT 40.2 % (36.0-47.0); HEMOGLOBIN 12.8 g/dl (12.0-15.5); MEAN CORPUSCULAR HEMOGLOBIN 30.5 pg (27.0-33.0); MEAN CORPUSCULAR HGB CONC 31.8 g/dl (32.0-36.5); MEAN CORPUSCULAR VOLUME 95.7 fl (80.0-96.0); PLATELET COUNT, AUTOMATED 302 10^3/uL (150-450); WHITE BLOOD COUNT 5.2 10^3/uL (4.0-10.0)
[2024-01-23 12:59] LABS: INR 2.33; PROTHROMBIN TIME 24.8 SECONDS (12.5-14.5)
== END ==
LOC: M LABDRWAD 12:15
PROVIDERS: ATTEND Internal Medicine Pulmonary Disease
DX: Z79.01 Long term (current) use of anticoagulants (principal); Z86.711 Personal history of pulmonary embolism

== ENCOUNTER → 2024-01-27 | Outpatient (CLI) | payer MEDICARE, OTHER | LOC: M WHC 13:45 | PROVIDERS: ATTEND Advanced Practice Midwife | DX: M85.851 Other specified disorders of bone density and structure, right thigh (principal); M85.852 Other specified disorders of bone density and structure, left thigh; Z13.820 Encounter for screening for osteoporosis; Z12.31 Encounter for screening mammogram for malignant neoplasm of breast ==

== ENCOUNTER → 2024-01-27 | Outpatient (CLI) | payer MEDICARE, OTHER | LOC: M WHC 13:46 | PROVIDERS: ATTEND Advanced Practice Midwife | DX: Z12.31 Encounter for screening mammogram for malignant neoplasm of breast (principal) ==

== ENCOUNTER → 2024-01-30 | Outpatient (REF) | payer MEDICARE, OTHER ==
[2024-01-30 13:09] LABS: INR 2.31; PROTHROMBIN TIME 24.6 SECONDS (12.5-14.5)
== END ==
LOC: M LABDRWAD 12:43
PROVIDERS: ATTEND Internal Medicine Pulmonary Disease
DX: Z79.01 Long term (current) use of anticoagulants (principal); Z86.711 Personal history of pulmonary embolism

== ENCOUNTER → 2024-02-06 | Outpatient (REF) | payer MEDICARE, OTHER ==
[2024-02-06 14:11] LABS: INR 2.49
== END ==
LOC: M LABWUC 12:24 → M LABDRWAD 12:24
PROVIDERS: ATTEND Internal Medicine Pulmonary Disease
DX: Z79.01 Long term (current) use of anticoagulants (principal); Z86.711 Personal history of pulmonary embolism

== ENCOUNTER → 2024-02-20 | Outpatient (REF) | payer MEDICARE, OTHER ==
[2024-02-20 13:05] LABS: INR 2.5; PROTHROMBIN TIME 26.1 SECONDS (12.5-14.5)
== END ==
LOC: M LABDRWAD 12:30
PROVIDERS: ATTEND Internal Medicine Pulmonary Disease
DX: Z79.01 Long term (current) use of anticoagulants (principal); Z86.711 Personal history of pulmonary embolism

== ENCOUNTER → 2024-02-27 | Outpatient (REF) | payer MEDICARE, OTHER ==
[2024-02-27 12:56] LABS: INR 2.87
== END ==
LOC: M LABDRWAD 12:17
PROVIDERS: ATTEND Internal Medicine Pulmonary Disease
DX: Z79.01 Long term (current) use of anticoagulants (principal); Z86.711 Personal history of pulmonary embolism

== ENCOUNTER → 2024-03-12 | Outpatient (REF) | payer MEDICARE, OTHER ==
[2024-03-12 13:24] LABS: INR 3.15; PROTHROMBIN TIME 31.2 SECONDS (12.5-14.5)
== END ==
LOC: M LABDRWAD 12:15
PROVIDERS: ATTEND Internal Medicine Pulmonary Disease
DX: Z79.01 Long term (current) use of anticoagulants (principal); Z86.711 Personal history of pulmonary embolism

== ENCOUNTER → 2024-04-16 | Outpatient (CLI) | payer MEDICARE, OTHER ==
[2024-04-16 13:49] LABS: INR 2.56; PROTHROMBIN TIME 26.6 SECONDS (12.5-14.5)
== END ==
LOC: M LAB 13:00
PROVIDERS: ATTEND Internal Medicine Pulmonary Disease
DX: Z79.01 Long term (current) use of anticoagulants (principal)

== ENCOUNTER → 2024-05-07 | Outpatient (REF) | payer MEDICARE, OTHER ==
[2024-05-07 13:06] LABS: INR 2.99
== END ==
LOC: M LABDRWAD 12:20
PROVIDERS: ATTEND Internal Medicine Pulmonary Disease
DX: Z79.01 Long term (current) use of anticoagulants (principal)

== ENCOUNTER → 2024-05-29 | Outpatient (REF) | payer MEDICARE, OTHER ==
[2024-05-29 12:35] LABS: HEMATOCRIT 41.5 % (36.0-47.0); HEMOGLOBIN 13.2 g/dl (12.0-15.5); MEAN CORPUSCULAR HEMOGLOBIN 30.3 pg (27.0-33.0); MEAN CORPUSCULAR HGB CONC 31.8 g/dl (32.0-36.5); MEAN CORPUSCULAR VOLUME 95.2 fl (80.0-96.0); PLATELET COUNT, AUTOMATED 250 10^3/uL (150-450); RED BLOOD COUNT 4.36 10^6/uL (4.00-5.40); WHITE BLOOD COUNT 4.4 10^3/uL (4.0-10.0)
[2024-05-29 13:01] LABS: INR 3.72; PROTHROMBIN TIME 35.4 SECONDS (12.5-14.5)
== END ==
LOC: M LABDRWAD 12:18
PROVIDERS: ATTEND Internal Medicine Pulmonary Disease
DX: Z79.01 Long term (current) use of anticoagulants (principal)

== ENCOUNTER → 2024-06-11 | Outpatient (REF) | payer MEDICARE, OTHER ==
[2024-06-11 12:59] LABS: INR 2.8; PROTHROMBIN TIME 28.5 SECONDS (12.5-14.5)
== END ==
LOC: M LABDRWAD 12:37
PROVIDERS: ATTEND Internal Medicine Pulmonary Disease
DX: Z79.01 Long term (current) use of anticoagulants (principal)

== ENCOUNTER → 2024-06-26 | Outpatient (REF) | payer MEDICARE, OTHER ==
[2024-06-26 13:02] LABS: INR 3.1; PROTHROMBIN TIME 30.8 SECONDS (12.5-14.5)
== END ==
LOC: M LABDRWAD 12:27
PROVIDERS: ATTEND Internal Medicine Pulmonary Disease
DX: Z79.01 Long term (current) use of anticoagulants (principal)

== ENCOUNTER → 2024-07-03 | Outpatient (REF) | payer MEDICARE, OTHER ==
[2024-07-03 12:40] LABS: INR 2.99; PROTHROMBIN TIME 29.9 SECONDS (12.5-14.5)
== END ==
LOC: M LABDRWAD 12:22
PROVIDERS: ATTEND Internal Medicine Pulmonary Disease
DX: Z79.01 Long term (current) use of anticoagulants (principal)

== ENCOUNTER → 2024-07-24 | Outpatient (REF) | payer MEDICARE, OTHER ==
[2024-07-24 13:02] LABS: INR 4.6; PROTHROMBIN TIME 41.7 SECONDS (12.5-14.5)
== END ==
LOC: M LABDRWAD 12:23
PROVIDERS: ATTEND Internal Medicine Pulmonary Disease
DX: Z79.01 Long term (current) use of anticoagulants (principal)

== ENCOUNTER → 2024-07-26 | Outpatient (REF) | payer MEDICARE, OTHER ==
[2024-07-26 12:42] LABS: INR 2.38; PROTHROMBIN TIME 25.1 SECONDS (12.5-14.5)
== END ==
LOC: M LABDRWAD 12:18
PROVIDERS: ATTEND Internal Medicine Pulmonary Disease
DX: Z79.01 Long term (current) use of anticoagulants (principal)

== ENCOUNTER → 2024-08-02 | Outpatient (REF) | payer MEDICARE, OTHER ==
[2024-08-02 13:25] LABS: INR 2.46; PROTHROMBIN TIME 25.8 SECONDS (12.5-14.5)
== END ==
LOC: M LABDRWAD 12:22
PROVIDERS: ATTEND Internal Medicine Pulmonary Disease
DX: Z79.01 Long term (current) use of anticoagulants (principal)

== ENCOUNTER → 2024-08-09 | Outpatient (REF) | payer MEDICARE, OTHER ==
[2024-08-09 13:12] LABS: INR 3.31; PROTHROMBIN TIME 32.4 SECONDS (12.5-14.5)
== END ==
LOC: M LABDRWAD 12:39
PROVIDERS: ATTEND Internal Medicine Pulmonary Disease
DX: Z79.01 Long term (current) use of anticoagulants (principal)

== ENCOUNTER → 2024-08-29 | Outpatient (REF) | payer MEDICARE, OTHER ==
[2024-08-29 12:52] LABS: HEMATOCRIT 39.5 % (36.0-47.0); HEMOGLOBIN 12.7 g/dl (12.0-15.5); MEAN CORPUSCULAR HGB CONC 32.2 g/dl (32.0-36.5); MEAN CORPUSCULAR VOLUME 96.3 fl (80.0-96.0); PLATELET COUNT, AUTOMATED 257 10^3/uL (150-450); WHITE BLOOD COUNT 5.4 10^3/uL (4.0-10.0)
[2024-08-29 13:03] LABS: INR 2.97; PROTHROMBIN TIME 29.8 SECONDS (12.5-14.5)
== END ==
LOC: M LABDRWAD 12:43
PROVIDERS: ATTEND Internal Medicine Pulmonary Disease
DX: Z79.01 Long term (current) use of anticoagulants (principal)

== ENCOUNTER → 2024-08-30 | Outpatient (REF) | payer MEDICARE, OTHER ==
[2024-08-30 13:28] LABS: FREE T4 1.27 NG/DL (0.89-1.76)
[2024-08-30 13:29] LABS: THYROID STIMULATING HORMONE 1.171 uIU/ML (0.55-4.78)
[2024-08-30 13:30] LABS: TOTAL 25(OH) VITAMIN D 38.9 NG/ML (20.0-100.0)
[2024-08-30 13:35] LABS: ALBUMIN 3.3 G/DL (3.2-5.2); ALKALINE PHOSPHATASE 79 U/L (46-116); ALT/SGPT 15 U/L (7.0-40); AST/SGOT 18 U/L (<34); BILIRUBIN,TOTAL 0.5 MG/DL (0.3-1.2); BLOOD UREA NITROGEN 14 MG/DL (9-23); CALCIUM LEVEL 9.4 MG/DL (8.3-10.6); CARBON DIOXIDE LEVEL 32 MMOL/L (20-31); CHLORIDE LEVEL 109 MMOL/L (98-107); CHOLESTEROL LEVEL 186 MG/DL (<200); CHOLESTEROL RISK RATIO 3.04 (<5); CREATININE FOR GFR 0.78 MG/DL (0.55-1.30); GLOMERULAR FILTRATION RATE > 60.0 (>39); GLUCOSE, FASTING 88 MG/DL (74-106); LDL CHOLESTEROL 107.2 MG/DL (<100); POTASSIUM SERUM 4.6 MMOL/L (3.5-5.1); SODIUM LEVEL 142 MMOL/L (136-145); TOTAL PROTEIN 6.7 G/DL (5.7-8.2); TRIGLYCERIDES LEVEL 89 MG/DL (<150)
[2024-08-30 13:40] LABS: BASO # 0.1 10^3/uL (0.0-0.2); BASO % 1.1 % (0.0-1.0); EOS # 0.1 10^3/uL (0.0-0.5); HEMATOCRIT 39.9 % (36.0-47.0); HEMOGLOBIN 12.6 g/dl (12.0-15.5); LYMPH # 1.9 10^3/uL (1.5-5.0); MEAN CORPUSCULAR HEMOGLOBIN 30.5 pg (27.0-33.0); MEAN CORPUSCULAR HGB CONC 31.6 g/dl (32.0-36.5); MEAN CORPUSCULAR VOLUME 96.6 fl (80.0-96.0); MONO # 0.5 10^3/uL (0.0-0.8); MONO % 11.2 % (2.0-8.0); NEUTROPHILS # 2.1 10^3/uL (1.5-8.5); NEUTROPHILS % 44.3 % (36.0-66.0); PLATELET COUNT, AUTOMATED 281 10^3/uL (150-450); RED BLOOD COUNT 4.13 10^6/uL (4.00-5.40); WHITE BLOOD COUNT 4.7 10^3/uL (4.0-10.0)
[2024-08-30 14:02] LABS: HEMOGLOBIN A1c 5.1 % (4.0-6.0)
== END ==
LOC: M SFHCADAM 09:20
PROVIDERS: ATTEND Physician Assistant
DX: M32.9 Systemic lupus erythematosus, unspecified (principal); D12.6 Benign neoplasm of colon, unspecified; N18.9 Chronic kidney disease, unspecified; M85.80 Other specified disorders of bone density and structure, unspecified site; Z13.220 Encounter for screening for lipoid disorders; Z68.33 Body mass index [BMI] 33.0-33.9, adult; Z79.899 Other long term (current) drug therapy

== ENCOUNTER → 2024-09-27 | Outpatient (REF) | payer MEDICARE, OTHER ==
[2024-09-27 12:59] LABS: INR 2.14
== END ==
LOC: M LABDRWAD 12:36
PROVIDERS: ATTEND Internal Medicine Pulmonary Disease
DX: Z79.01 Long term (current) use of anticoagulants (principal)

== ENCOUNTER → 2024-10-02 | Outpatient (CLI) | payer MEDICARE, OTHER ==
[2024-10-02 12:12] LABS: INR 2.17; PROTHROMBIN TIME 24.3 SECONDS (12.5-14.5)
== END ==
LOC: M LAB 11:35
PROVIDERS: ATTEND Internal Medicine Pulmonary Disease
DX: D68.62 Lupus anticoagulant syndrome (principal); Z79.01 Long term (current) use of anticoagulants; Z86.711 Personal history of pulmonary embolism

== ENCOUNTER → 2024-10-08 | Outpatient (CLI) | payer MEDICARE, OTHER ==
[2024-10-08 10:23] LABS: INR 2.34; PROTHROMBIN TIME 25.7 SECONDS (12.5-14.5)
== END ==
LOC: M LAB 09:45
PROVIDERS: ATTEND Internal Medicine Pulmonary Disease
DX: D68.62 Lupus anticoagulant syndrome (principal)

== ENCOUNTER → 2024-10-15 | Outpatient (REF) | payer MEDICARE, OTHER ==
[2024-10-15 12:52] LABS: INR 2.57; PROTHROMBIN TIME 27.6 SECONDS (12.5-14.5)
== END ==
LOC: M LABDRWAD 12:12 → M LAB REF 12:12
PROVIDERS: ATTEND Internal Medicine Pulmonary Disease
DX: Z79.01 Long term (current) use of anticoagulants (principal)

== ENCOUNTER → 2024-10-29 | Outpatient (REF) | payer MEDICARE, OTHER ==
[2024-10-29 12:56] LABS: INR 2.86
== END ==
LOC: M LABDRWAD 12:04
PROVIDERS: ATTEND Internal Medicine Pulmonary Disease
DX: Z79.01 Long term (current) use of anticoagulants (principal)

== ENCOUNTER → 2024-11-12 | Outpatient (REF) | payer MEDICARE, OTHER ==
[2024-11-12 13:43] LABS: HEMATOCRIT 42.3 % (36.0-47.0); HEMOGLOBIN 13.5 g/dl (12.0-15.5); MEAN CORPUSCULAR HEMOGLOBIN 30.5 pg (27.0-33.0); MEAN CORPUSCULAR HGB CONC 31.9 g/dl (32.0-36.5); MEAN CORPUSCULAR VOLUME 95.7 fl (80.0-96.0); PLATELET COUNT, AUTOMATED 261 10^3/uL (150-450); RED BLOOD COUNT 4.42 10^6/uL (4.00-5.40)
[2024-11-12 13:53] LABS: INR 2.12; PROTHROMBIN TIME 23.8 SECONDS (12.5-14.5)
== END ==
LOC: M LABDRWAD 12:49
PROVIDERS: ATTEND Internal Medicine Pulmonary Disease
DX: Z51.81 Encounter for therapeutic drug level monitoring (principal); Z79.01 Long term (current) use of anticoagulants

== ENCOUNTER → 2024-11-19 | Outpatient (REF) | payer MEDICARE, OTHER ==
[2024-11-19 13:32] LABS: INR 2.52; PROTHROMBIN TIME 27.2 SECONDS (12.5-14.5)
== END ==
LOC: M LABDRWAD 12:39
PROVIDERS: ATTEND Internal Medicine Pulmonary Disease
DX: Z51.81 Encounter for therapeutic drug level monitoring (principal); Z79.01 Long term (current) use of anticoagulants

== ENCOUNTER → 2024-11-26 | Outpatient (REF) | payer MEDICARE, OTHER ==
[2024-11-26 12:58] LABS: INR 3.01; PROTHROMBIN TIME 31.1 SECONDS (12.5-14.5)
== END ==
LOC: M LABDRWAD 12:42
PROVIDERS: ATTEND Internal Medicine Pulmonary Disease
DX: Z79.01 Long term (current) use of anticoagulants (principal)

== ENCOUNTER → 2024-12-10 | Outpatient (REF) | payer MEDICARE, OTHER ==
[2024-12-10 17:18] LABS: INR 3.3; PROTHROMBIN TIME 33.4 SECONDS (12.5-14.5)
== END ==
LOC: M LABDRWAD 16:48
PROVIDERS: ATTEND Internal Medicine Pulmonary Disease
DX: D68.62 Lupus anticoagulant syndrome (principal); Z79.01 Long term (current) use of anticoagulants; Z86.711 Personal history of pulmonary embolism

== ENCOUNTER → 2024-12-31 | Outpatient (REF) | payer MEDICARE, OTHER ==
[2024-12-31 12:47] LABS: INR 2.82; PROTHROMBIN TIME 29.6 SECONDS (12.5-14.5)
== END ==
LOC: M LABDRWAD 12:26
PROVIDERS: ATTEND Internal Medicine Pulmonary Disease
DX: D68.62 Lupus anticoagulant syndrome (principal); Z79.01 Long term (current) use of anticoagulants; Z86.711 Personal history of pulmonary embolism

== ENCOUNTER → 2025-01-14 | Outpatient (REF) | payer MEDICARE, OTHER ==
[2025-01-14 13:11] LABS: INR 3.28; PROTHROMBIN TIME 33.2 SECONDS (12.5-14.5)
== END ==
LOC: M LABDRWAD 12:45
PROVIDERS: ATTEND Internal Medicine Pulmonary Disease
DX: D68.62 Lupus anticoagulant syndrome (principal); Z79.01 Long term (current) use of anticoagulants; Z86.711 Personal history of pulmonary embolism

== ENCOUNTER → 2025-02-04 | Outpatient (REF) | payer MEDICARE, OTHER ==
[2025-02-04 12:57] LABS: INR 3.3; PROTHROMBIN TIME 33.4 SECONDS (12.5-14.5)
== END ==
LOC: M LABDRWAD 12:30
PROVIDERS: ATTEND Internal Medicine Pulmonary Disease
DX: D68.62 Lupus anticoagulant syndrome (principal); Z79.01 Long term (current) use of anticoagulants; Z86.711 Personal history of pulmonary embolism

== ENCOUNTER → 2025-02-18 | Outpatient (REF) | payer MEDICARE, OTHER ==
[2025-02-18 13:19] LABS: HEMATOCRIT 42.9 % (36.0-47.0); HEMOGLOBIN 13.5 g/dl (12.0-15.5); MEAN CORPUSCULAR HEMOGLOBIN 30.4 pg (27.0-33.0); MEAN CORPUSCULAR HGB CONC 31.5 g/dl (32.0-36.5); MEAN CORPUSCULAR VOLUME 96.6 fl (80.0-96.0); PLATELET COUNT, AUTOMATED 282 10^3/uL (150-450); RED BLOOD COUNT 4.44 10^6/uL (4.00-5.40); WHITE BLOOD COUNT 4.8 10^3/uL (4.0-10.0)
[2025-02-18 13:30] LABS: INR 3.21; PROTHROMBIN TIME 32.7 SECONDS (12.5-14.5)
== END ==
LOC: M LABDRWAD 13:05
PROVIDERS: ATTEND Internal Medicine Pulmonary Disease
DX: D68.62 Lupus anticoagulant syndrome (principal); Z79.01 Long term (current) use of anticoagulants; Z86.711 Personal history of pulmonary embolism

== ENCOUNTER → 2025-02-22 | Outpatient (REF) | payer MEDICARE, OTHER ==
[2025-02-22 13:19] LABS: BASO % 0.8 % (0.0-1.0); EOS # 0.1 10^3/uL (0.0-0.5); EOS % 2.1 % (0.0-3.0); HEMATOCRIT 40.5 % (36.0-47.0); HEMOGLOBIN 13.2 g/dl (12.0-15.5); LYMPH # 1.7 10^3/uL (1.5-5.0); LYMPH % 33.2 % (24.0-44.0); MEAN CORPUSCULAR HEMOGLOBIN 30.5 pg (27.0-33.0); MEAN CORPUSCULAR HGB CONC 32.6 g/dl (32.0-36.5); MEAN CORPUSCULAR VOLUME 93.5 fl (80.0-96.0); MONO # 0.5 10^3/uL (0.0-0.8); MONO % 10.2 % (2.0-8.0); NEUTROPHILS # 2.8 10^3/uL (1.5-8.5); NEUTROPHILS % 53.3 % (36.0-66.0); PLATELET COUNT, AUTOMATED 274 10^3/uL (150-450); RED BLOOD COUNT 4.33 10^6/uL (4.00-5.40); WHITE BLOOD COUNT 5.2 10^3/uL (4.0-10.0)
[2025-02-22 13:46] LABS: CALCIUM LEVEL 9.4 MG/DL (8.3-10.6); CREATININE FOR GFR 0.76 MG/DL (0.55-1.30); GLOMERULAR FILTRATION RATE 82.7 (>39); POTASSIUM SERUM 4.1 MMOL/L (3.5-5.1)
== END ==
LOC: M SFHCADAM 10:01
PROVIDERS: ATTEND Physician Assistant
DX: N18.9 Chronic kidney disease, unspecified (principal)

== ENCOUNTER → 2025-03-11 | Outpatient (REF) | payer MEDICARE, OTHER ==
[2025-03-11 12:59] LABS: INR 2.2; PROTHROMBIN TIME 24.6 SECONDS (12.5-14.5)
== END ==
LOC: M LABDRWAD 12:29
PROVIDERS: ATTEND Internal Medicine Pulmonary Disease
DX: D68.62 Lupus anticoagulant syndrome (principal); Z79.01 Long term (current) use of anticoagulants; Z86.711 Personal history of pulmonary embolism

== ENCOUNTER → 2025-03-15 | Outpatient (CLI) | payer MEDICARE, OTHER ==
[2025-03-15 10:47] LABS: INR 2.56; PROTHROMBIN TIME 27.5 SECONDS (12.5-14.5)
== END ==
LOC: M LAB 09:49
PROVIDERS: ATTEND Internal Medicine Pulmonary Disease
DX: Z86.711 Personal history of pulmonary embolism (principal); Z79.01 Long term (current) use of anticoagulants

== ENCOUNTER → 2025-03-20 | Outpatient (REF) | payer MEDICARE, OTHER ==
[2025-03-20 13:30] LABS: INR 3.39
== END ==
LOC: M LABDRWAD 12:54
PROVIDERS: ATTEND Internal Medicine Pulmonary Disease
DX: D68.62 Lupus anticoagulant syndrome (principal); Z79.01 Long term (current) use of anticoagulants; Z86.711 Personal history of pulmonary embolism

== ENCOUNTER → 2025-03-25 | Outpatient (CLI) | payer MEDICARE, OTHER ==
[2025-03-25 13:00] LABS: PROTHROMBIN TIME 38.6 SECONDS (12.5-14.5)
== END ==
LOC: M LABDRWAD 09:59
PROVIDERS: ATTEND Internal Medicine Pulmonary Disease
DX: D68.62 Lupus anticoagulant syndrome (principal); Z79.01 Long term (current) use of anticoagulants; Z86.711 Personal history of pulmonary embolism

== ENCOUNTER → 2025-03-28 | Outpatient (REF) | payer MEDICARE, OTHER ==
[2025-03-28 13:34] LABS: INR 3.14; PROTHROMBIN TIME 32.2 SECONDS (12.5-14.5)
== END ==
LOC: M LABDRWAD 13:02
PROVIDERS: ATTEND Internal Medicine Pulmonary Disease
DX: D68.62 Lupus anticoagulant syndrome (principal); Z79.01 Long term (current) use of anticoagulants; Z86.711 Personal history of pulmonary embolism

== ENCOUNTER 2025-04-30 13:41 | Inpatient (IN) | payer MEDICARE, OTHER ==
[~2025-04-30] VITALS: Ht 167.6 cm; Wt 102.2 kg
[~2025-04-30 13:41] MED LIST changes: +AMOX875T2 PO; +BACI1CAP PO; +D-101000 PO; +LOVE0.8I SC; +OXYC1TAB23 PO; +OYST1TAB PO; +VITA-158 PO; +WARF-23 PO; +WARF4TAB51 PO; +WARF4TAB52 PO
[2025-04-30] MEDS ORDERED: ENOX100I3 (13:55)
[2025-04-30] MEDS: ACETAMINOPHEN *IV* 1,000 MG in IV 1 EA IV ONE ×2 (14:25→17:52)
[2025-04-30] MEDS ORDERED: AMOX875T2 PO (15:16)
[2025-04-30] MEDS ORDERED: LOVE0.8I SC (15:16)
[2025-04-30] MEDS ORDERED: WARF4TAB51 PO (15:18)
[2025-04-30] MEDS ORDERED: HOME MED LIST COMPLETE! XX SCH (15:20)
[2025-04-30 15:35] LABS: VENOUS BASE EXCESS -4.0 (-2.0-2.0); VENOUS HCO3 22.1 MMOL/L (23.0-27.0); VENOUS O2 SATURATION 52.6 % (60.0-80.0); VENOUS PARTIAL PRESSURE CO2 44.1 mmHg (38.0-50.0); VENOUS PARTIAL PRESSURE O2 29.3 mmHg (30.0-50.0); VENOUS PH 7.317 UNITS (7.330-7.430); VENOUS STANDARD HCO3 20.3 MMOL/L; VENOUS TOTAL CO2 23.4 MMOL/L (24.0-28.0)
[2025-04-30 15:37] LABS: BASO # 0.0 10^3/uL (0.0-0.2); BASO % 0.3 % (0.0-1.0); EOS # 0.0 10^3/uL (0.0-0.5); EOS % 0.1 % (0.0-3.0); LYMPH # 1.4 10^3/uL (1.5-5.0); LYMPH % 14.7 % (24.0-44.0); MONO # 0.6 10^3/uL (0.0-0.8); MONO % 6.2 % (2.0-8.0); NEUTROPHILS # 7.1 10^3/uL (1.5-8.5); NEUTROPHILS % 75.5 % (36.0-66.0); PLATELET COUNT, AUTOMATED 380 10^3/uL (150-450)
[2025-04-30] MEDS ORDERED: ISOVUE-370 76% 100 ML VIAL As Ordered ONE (15:42)
[2025-04-30] MEDS: PIPERACILLIN/TAZOBACTAM SOD 4.5 GM in DEXTROSE 5% (D5W) ADV/MINI-BAG 50 ML IV ONE (15:42)
[2025-04-30] MEDS: [UNRECOGNIZED DRUG - OTHER] IV ONE (15:48)
[2025-04-30] MEDS: NS 0.9% IV ONE (15:48)
[2025-04-30 15:49] LABS: INR 2.5
[2025-04-30 16:10] LABS: ALT/SGPT 105.0 U/L (7.0-40); AST/SGOT 94.0 U/L (<34); C REACTIVE PROTEIN QUANTITATIV 2.72 MG/DL (<1.0); CALCIUM LEVEL 9.2 MG/DL (8.3-10.6); CARBON DIOXIDE LEVEL 24.0 MMOL/L (20-31); CHLORIDE LEVEL 101.0 MMOL/L (98-107); CREATININE FOR GFR 1.01 MG/DL (0.55-1.30); GLOMERULAR FILTRATION RATE 58.8 (>39); POTASSIUM SERUM 4.3 MMOL/L (3.5-5.1); SODIUM LEVEL 137.0 MMOL/L (136-145)
[2025-04-30] MEDS: PROTAMINE SULF 50MG 5ML VIAL IV STA (18:50)
[2025-04-30] MEDS: SODIUM CHLORIDE 0.9% 1000 ML IV ONE (19:35)
[2025-04-30] MEDS ORDERED: NOREPINEPHRINE 4 MG IN D5W 250 ML IVBAG (16 MCG/ML) As Ordered ONE (21:01)
[2025-04-30 22:22] VITALS: BP 89/50; TEMP 96.3; O2SAT 99
[2025-04-30] MEDS: VASOPRESSIN IN 0.9 % NACL 20 UNIT in IV 1 EA IV SCH (22:23)
[2025-04-30] MEDS ORDERED: NOREPINEPHRINE 4MG IN D5 250ML 4 MG in IV 1 EA IV SCH (22:30)
[2025-04-30] MEDS: NOREPINEPHRINE 4MG IN D5 250ML 4 MG in IV 1 EA IV SCH (22:45)
[2025-04-30 22:48] VITALS: BP 124/65; TEMP 98.2; O2SAT 95
[2025-04-30 23:00] VITALS: BP 141/64
[2025-04-30 23:15] VITALS: BP 124/73; O2SAT 96
[2025-04-30 23:23] LABS: PLATELET COUNT, AUTOMATED 343 10^3/uL (150-450)
[2025-04-30] MEDS: PIPERACILLIN/TAZOBACTAM SOD 3.375 GM in DEXTROSE 5% (D5W) ADV/MINI-BAG 50 ML IV SCH (23:24)
[2025-04-30 23:30] VITALS: BP 113/57; O2SAT 97
[2025-04-30 23:43] LABS: INR 2.13
[2025-04-30 23:45] VITALS: BP 107/56; O2SAT 98
[2025-05-01] VITALS (77 sets, daily range): BP systolic 82–163; BP diastolic 43–89; TEMP 96.3–98.4; O2SAT 89–100
[2025-05-01] MEDS: ACETAMINOPHEN *IV* 1,000 MG in IV 1 EA IV ONE (00:51)
[2025-05-01] MEDS: MORPHINE 2 MG/ML 1 ML VIAL IV ONE ×2 (05:13→06:57)
[2025-05-01 07:00] LABS: PLATELET COUNT, AUTOMATED 281 10^3/uL (150-450)
[2025-05-01 07:18] LABS: INR 1.72
[2025-05-01 07:30] LABS: ALT/SGPT 80.0 U/L (7.0-40); AST/SGOT 72.0 U/L (<34); CALCIUM LEVEL 7.9 MG/DL (8.3-10.6); CARBON DIOXIDE LEVEL 18.0 MMOL/L (20-31); CHLORIDE LEVEL 107.0 MMOL/L (98-107); CREATININE FOR GFR 1.52 MG/DL (0.55-1.30); GLOMERULAR FILTRATION RATE 36.0 (>39); POTASSIUM SERUM 4.5 MMOL/L (3.5-5.1); SODIUM LEVEL 141.0 MMOL/L (136-145)
[2025-05-01] MEDS: ASCORBIC ACID 500 MG TAB PO SCH (09:00)
[2025-05-01] MEDS: OYSTER SHELL CALCIUM 500 MG TAB PO SCH (09:00)
[2025-05-01] MEDS ORDERED: VASOPRESSIN IN 0.9 % NACL 20UNIT/100ML INFUS.BTL As Ordered ONE (10:49)
[2025-05-01 11:28] LABS: PLATELET COUNT, AUTOMATED 306 10^3/uL (150-450)
[2025-05-01 11:29] LABS: INR 2.02
[2025-05-01 13:00] LABS: EOSINOPHILS 1 % (0-3); LYMPHOCYTES 23 % (16-44); MYELOCYTES 5 % (0-0); NEUTROPHILS 66 % (28-66)
[2025-05-01 13:01] LABS: PLATELET ESTIMATE NORMAL (NORMAL)
[2025-05-01] MEDS ORDERED: HEPARIN 1,000 UNITS/ML 10 ML VIAL (FOR RADIOLOGY & DIALYSIS ONLY) IV PRN (13:25)
[2025-05-01] MEDS: SODIUM CHLORIDE 0.9% 1000 ML XX ONE (13:35)
[2025-05-01] MEDS: MIDAZOLAM INJ 2 MG/2 ML VIAL IV PRN (14:46)
[2025-05-01] MEDS: NS (Normal Saline) 0.9% 1,000 ML IV SCH (14:58)
[2025-05-01] MEDS: LIDOCAINE 1% MDV 20 ML VIAL SC SCH (15:46)
[2025-05-01] MEDS: ISOVUE-300 61% 100 ML VIAL IV SCH (15:47)
[2025-05-01] MEDS: CALCIUM GLUCONATE 1,000 MG in DEXTROSE 5% (D5W) MINI-BAG PLU 100 ML IV SCH (17:14)
[2025-05-01] MEDS ORDERED: CALCIUM GLUCONATE 1,000 MG in DEXTROSE 5% (D5W) MINI-BAG PLU 100 ML IV SCH (17:30)
[2025-05-01 17:38] LABS: BASO # 0.1 10^3/uL (0.0-0.2); BASO % 0.2 % (0.0-1.0); EOS # 0.0 10^3/uL (0.0-0.5); EOS % 0.0 % (0.0-3.0); INR 2.01; LYMPH # 2.7 10^3/uL (1.5-5.0); LYMPH % 13.0 % (24.0-44.0); MONO # 1.8 10^3/uL (0.0-0.8); MONO % 8.4 % (2.0-8.0); NEUTROPHILS # 15.5 10^3/uL (1.5-8.5); NEUTROPHILS % 74.0 % (36.0-66.0); PLATELET COUNT, AUTOMATED 218 10^3/uL (150-450)
[2025-05-01 17:41] LABS: D-DIMER QUANT 0.56 ug/mL (<0.5)
[2025-05-01] MEDS ORDERED: CALCIUM GLUCONATE 1,000 MG/10 ML VIAL As Ordered ONE (18:30)
[2025-05-01 23:00] LABS: PLATELET COUNT, AUTOMATED 224 10^3/uL (150-450)
[2025-05-01] MEDS: NS 500 ML IV ONE (23:07)
[2025-05-01 23:15] LABS: INR 2.23
[2025-05-02] VITALS (87 sets, daily range): BP systolic 73–148; BP diastolic 33–83; TEMP 94–99.9; O2SAT 92–99
[2025-05-02 00:04] LABS: LDH LACTATE DEHYDROGENASE 233.0 U/L (120-246)
[2025-05-02 00:07] LABS: ALT/SGPT 76.0 U/L (7.0-40); AST/SGOT 59.0 U/L (<34); CALCIUM LEVEL 8.6 MG/DL (8.3-10.6); CARBON DIOXIDE LEVEL 16.0 MMOL/L (20-31); CHLORIDE LEVEL 106.0 MMOL/L (98-107); CREATININE FOR GFR 2.79 MG/DL (0.55-1.30); GLOMERULAR FILTRATION RATE 17.4 (>39); MAGNESIUM LEVEL 1.9 MG/DL (1.8-2.4); PHOSPHORUS LEVEL 6.3 MG/DL (2.4-5.1); POTASSIUM SERUM 4.4 MMOL/L (3.5-5.1); SODIUM LEVEL 138.0 MMOL/L (136-145)
[2025-05-02] MEDS: NS (Normal Saline) 0.9% 1,000 ML IV ONE (01:00)
[2025-05-02 02:42] LABS: ATYPICAL LYMPH 4 % (0-5); EOSINOPHILS 1 % (0-3); LYMPHOCYTES 7 % (16-44); METAMYELOCYTES 2 % (0-0); MONOCYTES 4 % (0-5); NEUTROPHILS 74 % (28-66); PLATELET ESTIMATE NORMAL (NORMAL)
[2025-05-02 03:15] LABS: PLATELET COUNT, AUTOMATED 221 10^3/uL (150-450)
[2025-05-02 03:33] LABS: INR 2.56
[2025-05-02 04:23] LABS: ATYPICAL LYMPH 6 % (0-5); LYMPHOCYTES 8 % (16-44); METAMYELOCYTES 3 % (0-0); MONOCYTES 6 % (0-5); NEUTROPHILS 74 % (28-66)
[2025-05-02 04:26] LABS: PLATELET ESTIMATE NORMAL (NORMAL)
[2025-05-02 06:09] LABS: PLATELET COUNT, AUTOMATED 240 10^3/uL (150-450)
[2025-05-02 06:10] LABS: INR 2.67
[2025-05-02 06:27] LABS: EOSINOPHILS 1 % (0-3); LYMPHOCYTES 12 % (16-44); MONOCYTES 4 % (0-5); NEUTROPHILS 78 % (28-66); PLATELET ESTIMATE NORMAL (NORMAL)
[2025-05-02 06:28] LABS: CALCIUM LEVEL 7.8 MG/DL (8.3-10.6); CARBON DIOXIDE LEVEL 15.0 MMOL/L (20-31); CHLORIDE LEVEL 106.0 MMOL/L (98-107); CREATININE FOR GFR 3.14 MG/DL (0.55-1.30); GLOMERULAR FILTRATION RATE 15.1 (>39); POTASSIUM SERUM 4.4 MMOL/L (3.5-5.1); SODIUM LEVEL 138.0 MMOL/L (136-145)
[2025-05-02] MEDS: cefTRIAXone SOD 1 GM in DEXTROSE 5% (D5W) ADV/MINI-BAG 50 ML IV SCH (08:33)
[2025-05-02] MEDS: CALCIUM GLUCONATE 1,000 MG in DEXTROSE 5% (D5W) MINI-BAG PLU 100 ML IV ONE (08:33)
[2025-05-02] MEDS ORDERED: PHENYLEPHRINE HCL INJ 50 MG in D5W 495 ML IV SCH (09:00)
[2025-05-02] MEDS: metroNIDAZOLE 500 MG in IV 1 EA IV SCH (10:31)
[2025-05-02 10:58] LABS: BASO # 0.1 10^3/uL (0.0-0.2); BASO % 0.3 % (0.0-1.0); EOS # 0.0 10^3/uL (0.0-0.5); EOS % 0.0 % (0.0-3.0); LYMPH # 4.4 10^3/uL (1.5-5.0); LYMPH % 12.1 % (24.0-44.0); MONO % 8.1 % (2.0-8.0); NEUTROPHILS # 27.2 10^3/uL (1.5-8.5); NEUTROPHILS % 74.1 % (36.0-66.0); PLATELET COUNT, AUTOMATED 240 10^3/uL (150-450)
[2025-05-02 11:06] LABS: MONO # 3.0 10^3/uL (0.0-0.8)
[2025-05-02 11:12] LABS: INR 3.06
[2025-05-02] MEDS: PHYTONADIONE 5 MG TAB PO ONE (11:37)
[2025-05-02] MEDS ORDERED: VANCOMYCIN INTERMITTENT/PULSE DOSING BY CLINICAL PHARMACIST PER DOSING PROTOCOL XX SCH (11:50)
[2025-05-02 13:17] LABS: ALT/SGPT 63.0 U/L (7.0-40); AST/SGOT 45.0 U/L (<34); CALCIUM LEVEL 8.3 MG/DL (8.3-10.6); CARBON DIOXIDE LEVEL 16.0 MMOL/L (20-31); CHLORIDE LEVEL 103.0 MMOL/L (98-107); CREATININE FOR GFR 3.62 MG/DL (0.55-1.30); GLOMERULAR FILTRATION RATE 12.7 (>39); POTASSIUM SERUM 4.4 MMOL/L (3.5-5.1); SODIUM LEVEL 135.0 MMOL/L (136-145)
[2025-05-02] MEDS: VANCOMYCIN HCL 1,500 MG, VIAL MATE ADAPTER 1 EACH in NS 500 ML IV ONE (13:36)
[2025-05-02] MEDS: PIPERACILLIN/TAZOBACTAM SOD 4.5 GM in DEXTROSE 5% (D5W) ADV/MINI-BAG 50 ML IV SCH (14:35)
[2025-05-02 15:01] LABS: IONIZED CALCIUM 4.6 MG/DL (4.5-5.3)
[2025-05-02 15:08] LABS: BASO # 0.1 10^3/uL (0.0-0.2); BASO % 0.2 % (0.0-1.0); EOS # 0.0 10^3/uL (0.0-0.5); EOS % 0.0 % (0.0-3.0); LYMPH # 3.4 10^3/uL (1.5-5.0); LYMPH % 11.0 % (24.0-44.0); MONO % 9.3 % (2.0-8.0); NEUTROPHILS # 22.8 10^3/uL (1.5-8.5); NEUTROPHILS % 74.3 % (36.0-66.0); PLATELET COUNT, AUTOMATED 199 10^3/uL (150-450)
[2025-05-02 15:12] LABS: MONO # 2.9 10^3/uL (0.0-0.8)
[2025-05-02 15:26] LABS: INR 2.1
[2025-05-02 15:40] LABS: ALT/SGPT 56.0 U/L (7.0-40); AST/SGOT 40.0 U/L (<34); CALCIUM LEVEL 8.5 MG/DL (8.3-10.6); CARBON DIOXIDE LEVEL 16.0 MMOL/L (20-31); CHLORIDE LEVEL 104.0 MMOL/L (98-107); CREATININE FOR GFR 3.68 MG/DL (0.55-1.30); GLOMERULAR FILTRATION RATE 12.5 (>39); POTASSIUM SERUM 4.4 MMOL/L (3.5-5.1); SODIUM LEVEL 136.0 MMOL/L (136-145)
[2025-05-02 18:54] LABS: BASO # 0.1 10^3/uL (0.0-0.2); BASO % 0.2 % (0.0-1.0); EOS # 0.0 10^3/uL (0.0-0.5); EOS % 0.0 % (0.0-3.0); LYMPH # 3.5 10^3/uL (1.5-5.0); LYMPH % 10.9 % (24.0-44.0); MONO % 9.1 % (2.0-8.0); NEUTROPHILS # 24.2 10^3/uL (1.5-8.5); NEUTROPHILS % 75.2 % (36.0-66.0); PLATELET COUNT, AUTOMATED 215 10^3/uL (150-450)
[2025-05-02 19:01] LABS: MONO # 2.9 10^3/uL (0.0-0.8)
[2025-05-02 22:33] LABS: BASO # 0.1 10^3/uL (0.0-0.2); BASO % 0.2 % (0.0-1.0); EOS # 0.0 10^3/uL (0.0-0.5); EOS % 0.0 % (0.0-3.0); LYMPH # 3.3 10^3/uL (1.5-5.0); LYMPH % 9.6 % (24.0-44.0); MONO % 9.5 % (2.0-8.0); NEUTROPHILS # 26.0 10^3/uL (1.5-8.5); NEUTROPHILS % 76.2 % (36.0-66.0); PLATELET COUNT, AUTOMATED 211 10^3/uL (150-450)
[2025-05-02 22:37] LABS: MONO # 3.3 10^3/uL (0.0-0.8)
[2025-05-02 22:46] LABS: INR 2.24
[2025-05-02 23:08] LABS: ALT/SGPT 55.0 U/L (7.0-40); AST/SGOT 45.0 U/L (<34); CALCIUM LEVEL 8.3 MG/DL (8.3-10.6); CARBON DIOXIDE LEVEL 17.0 MMOL/L (20-31); CHLORIDE LEVEL 105.0 MMOL/L (98-107); CREATININE FOR GFR 4.19 MG/DL (0.55-1.30); GLOMERULAR FILTRATION RATE 10.7 (>39); POTASSIUM SERUM 4.7 MMOL/L (3.5-5.1); SODIUM LEVEL 135.0 MMOL/L (136-145)
[2025-05-03] VITALS (61 sets, daily range): BP systolic 92–185; BP diastolic 50–90; TEMP 99.5–100; O2SAT 92–99
[2025-05-03] MEDS: CALCIUM CARBONATE 500 MG CHEW U/D PO PRN (00:52)
[2025-05-03 06:23] LABS: PLATELET COUNT, AUTOMATED 238 10^3/uL (150-450)
[2025-05-03 06:30] LABS: CALCIUM LEVEL 8.4 MG/DL (8.3-10.6); CARBON DIOXIDE LEVEL 17.0 MMOL/L (20-31); CHLORIDE LEVEL 102.0 MMOL/L (98-107); CREATININE FOR GFR 4.62 MG/DL (0.55-1.30); GLOMERULAR FILTRATION RATE 9.5 (>39); POTASSIUM SERUM 4.4 MMOL/L (3.5-5.1); SODIUM LEVEL 134.0 MMOL/L (136-145)
[2025-05-03 06:35] LABS: INR 2.02
[2025-05-03 06:36] LABS: VANCOMYCIN RANDOM 23.0 UG/ML
[2025-05-03 06:37] LABS: ALT/SGPT 52.0 U/L (7.0-40); AST/SGOT 43.0 U/L (<34); CALCIUM LEVEL 8.4 MG/DL (8.3-10.6); CARBON DIOXIDE LEVEL 17.0 MMOL/L (20-31); CHLORIDE LEVEL 103.0 MMOL/L (98-107); CREATININE FOR GFR 4.68 MG/DL (0.55-1.30); GLOMERULAR FILTRATION RATE 9.3 (>39); POTASSIUM SERUM 4.6 MMOL/L (3.5-5.1); SODIUM LEVEL 136.0 MMOL/L (136-145)
[2025-05-03] MEDS ORDERED: NS (Normal Saline) 0.9% 1,000 ML IV SCH (06:50)
[2025-05-03 07:01] LABS: ATYPICAL LYMPH 1 % (0-5); LYMPHOCYTES 12 % (16-44); METAMYELOCYTES 1 % (0-0); MONOCYTES 6 % (0-5); NEUTROPHILS 77 % (28-66)
[2025-05-03 07:03] LABS: PLATELET ESTIMATE NORMAL (NORMAL)
[2025-05-03] MEDS ORDERED: ACETAMINOPHEN 325 MG TAB PO ONE (08:00)
[2025-05-03 14:07] LABS: BASO # 0.1 10^3/uL (0.0-0.2); BASO % 0.3 % (0.0-1.0); EOS # 0.0 10^3/uL (0.0-0.5); EOS % 0.0 % (0.0-3.0); LYMPH # 3.0 10^3/uL (1.5-5.0); LYMPH % 8.8 % (24.0-44.0); MONO % 8.6 % (2.0-8.0); NEUTROPHILS # 25.9 10^3/uL (1.5-8.5); NEUTROPHILS % 77.0 % (36.0-66.0); PLATELET COUNT, AUTOMATED 215 10^3/uL (150-450)
[2025-05-03 14:24] LABS: INR 1.49
[2025-05-03 14:26] LABS: MONO # 2.9 10^3/uL (0.0-0.8)
[2025-05-03 14:27] LABS: ALT/SGPT 50.0 U/L (7.0-40); AST/SGOT 47.0 U/L (<34); CALCIUM LEVEL 8.4 MG/DL (8.3-10.6); CARBON DIOXIDE LEVEL 17.0 MMOL/L (20-31); CHLORIDE LEVEL 102.0 MMOL/L (98-107); CREATININE FOR GFR 5.01 MG/DL (0.55-1.30); GLOMERULAR FILTRATION RATE 8.6 (>39); POTASSIUM SERUM 4.6 MMOL/L (3.5-5.1); SODIUM LEVEL 133.0 MMOL/L (136-145)
[2025-05-03] MEDS ORDERED: LIDOCAINE 1% MDV 20 ML VIAL As Ordered ONE (15:20)
[2025-05-03] MEDS: FUROSEMIDE 100 MG/10 ML VIAL IV ONE (20:54)
[2025-05-04] VITALS (44 sets, daily range): BP systolic 109–150; BP diastolic 52–68; TEMP 97–99.8; O2SAT 93–100
[2025-05-04 00:14] LABS: PLATELET COUNT, AUTOMATED 194 10^3/uL (150-450)
[2025-05-04 00:38] LABS: CALCIUM LEVEL 7.9 MG/DL (8.3-10.6); CARBON DIOXIDE LEVEL 16.0 MMOL/L (20-31); CHLORIDE LEVEL 104.0 MMOL/L (98-107); CREATININE FOR GFR 5.4 MG/DL (0.55-1.30); GLOMERULAR FILTRATION RATE 7.9 (>39); MAGNESIUM LEVEL 1.9 MG/DL (1.8-2.4); PHOSPHORUS LEVEL 7.3 MG/DL (2.4-5.1); POTASSIUM SERUM 5.1 MMOL/L (3.5-5.1); SODIUM LEVEL 134.0 MMOL/L (136-145)
[2025-05-04 04:40] LABS: PLATELET COUNT, AUTOMATED 171 10^3/uL (150-450)
[2025-05-04 05:06] LABS: VANCOMYCIN RANDOM 17.9 UG/ML
[2025-05-04 05:16] LABS: ALT/SGPT 44.0 U/L (7.0-40); AST/SGOT 51.0 U/L (<34); CALCIUM LEVEL 7.9 MG/DL (8.3-10.6); CARBON DIOXIDE LEVEL 16.0 MMOL/L (20-31); CHLORIDE LEVEL 102.0 MMOL/L (98-107); CREATININE FOR GFR 5.52 MG/DL (0.55-1.30); GLOMERULAR FILTRATION RATE 7.7 (>39); MAGNESIUM LEVEL 1.9 MG/DL (1.8-2.4); PHOSPHORUS LEVEL 7.5 MG/DL (2.4-5.1); POTASSIUM SERUM 5.1 MMOL/L (3.5-5.1); SODIUM LEVEL 133.0 MMOL/L (136-145)
[2025-05-04 05:20] LABS: INR 1.27
[2025-05-04] MEDS: VANCOMYCIN HCL 1,000 MG, VIAL MATE ADAPTER 1 EACH in NS 250 ML IV ONE (08:46)
[2025-05-04] MEDS: SODIUM BICARBONATE 325 MG TAB PO SCH (09:59)
[2025-05-04] MEDS: METOPROLOL TART 25 MG TABLET PO SCH (13:16)
[2025-05-04] MEDS: FUROSEMIDE 100 MG/10 ML VIAL IV ONE (13:23)
[2025-05-05] VITALS (18 sets, daily range): BP systolic 98–128; BP diastolic 49–59; TEMP 97.2–98.4; O2SAT 93–98
[2025-05-05 04:30] LABS: BASO # 0.0 10^3/uL (0.0-0.2); BASO % 0.2 % (0.0-1.0); EOS # 0.0 10^3/uL (0.0-0.5); EOS % 0.1 % (0.0-3.0); LYMPH # 1.7 10^3/uL (1.5-5.0); LYMPH % 8.8 % (24.0-44.0); MONO # 1.5 10^3/uL (0.0-0.8); MONO % 7.7 % (2.0-8.0); NEUTROPHILS # 15.4 10^3/uL (1.5-8.5); NEUTROPHILS % 78.9 % (36.0-66.0); PLATELET COUNT, AUTOMATED 134 10^3/uL (150-450)
[2025-05-05 05:05] LABS: VANCOMYCIN RANDOM 24.4 UG/ML
[2025-05-05] MEDS ORDERED: NS (Normal Saline) 0.9% 1,000 ML IV SCH (05:05)
[2025-05-05 05:14] LABS: CREATININE FOR GFR 5.42 MG/DL (0.55-1.30)
[2025-05-05 05:15] LABS: ALT/SGPT 47.0 U/L (7.0-40); AST/SGOT 61.0 U/L (<34); CALCIUM LEVEL 7.8 MG/DL (8.3-10.6); CARBON DIOXIDE LEVEL 18.0 MMOL/L (20-31); CHLORIDE LEVEL 103.0 MMOL/L (98-107); GLOMERULAR FILTRATION RATE 7.8 (>39); MAGNESIUM LEVEL 2.0 MG/DL (1.8-2.4); PHOSPHORUS LEVEL 7.8 MG/DL (2.4-5.1); POTASSIUM SERUM 3.9 MMOL/L (3.5-5.1); SODIUM LEVEL 137.0 MMOL/L (136-145)
[2025-05-05] MEDS: PANTOPRAZOLE 40MG TAB PO SCH (08:53)
[2025-05-05 12:16] LABS: BASO # 0.0 10^3/uL (0.0-0.2); BASO % 0.2 % (0.0-1.0); EOS # 0.0 10^3/uL (0.0-0.5); EOS % 0.1 % (0.0-3.0); LYMPH # 1.4 10^3/uL (1.5-5.0); LYMPH % 8.2 % (24.0-44.0); MONO # 1.4 10^3/uL (0.0-0.8); MONO % 8.3 % (2.0-8.0); NEUTROPHILS # 13.6 10^3/uL (1.5-8.5); NEUTROPHILS % 78.8 % (36.0-66.0); PLATELET COUNT, AUTOMATED 128 10^3/uL (150-450)
[2025-05-05] MEDS: LOPERAMIDE 2 MG CAPLET PO ONE (15:49)
[2025-05-06] VITALS (7 sets, daily range): BP systolic 92–152; BP diastolic 56–67; TEMP 97.3–98.3; O2SAT 96–98
[2025-05-06] MEDS: LOPERAMIDE 2 MG CAPLET PO PRN (02:32)
[2025-05-06 06:04] LABS: BASO # 0.0 10^3/uL (0.0-0.2); BASO % 0.2 % (0.0-1.0); EOS # 0.1 10^3/uL (0.0-0.5); EOS % 1.0 % (0.0-3.0); LYMPH # 1.2 10^3/uL (1.5-5.0); LYMPH % 8.0 % (24.0-44.0); MONO # 1.5 10^3/uL (0.0-0.8); MONO % 10.7 % (2.0-8.0); NEUTROPHILS # 10.8 10^3/uL (1.5-8.5); NEUTROPHILS % 75.4 % (36.0-66.0); PLATELET COUNT, AUTOMATED 135 10^3/uL (150-450)
[2025-05-06 06:38] LABS: ALT/SGPT 48.0 U/L (7.0-40); AST/SGOT 64.0 U/L (<34); CALCIUM LEVEL 7.8 MG/DL (8.3-10.6); CARBON DIOXIDE LEVEL 20.0 MMOL/L (20-31); CHLORIDE LEVEL 106.0 MMOL/L (98-107); CREATININE FOR GFR 3.95 MG/DL (0.55-1.30); GLOMERULAR FILTRATION RATE 11.4 (>39); MAGNESIUM LEVEL 2.0 MG/DL (1.8-2.4); PHOSPHORUS LEVEL 6.0 MG/DL (2.4-5.1); POTASSIUM SERUM 3.2 MMOL/L (3.5-5.1); SODIUM LEVEL 141.0 MMOL/L (136-145)
[2025-05-06] MEDS: POTASSIUM CHLORIDE 10MEQ SR TABLET PO SCH (09:29)
[2025-05-06] MEDS ORDERED: SODIUM CHLORIDE 0.9% INJ 10 ML SYR IV PRN (16:50)
[2025-05-06] MEDS: SODIUM CHLORIDE 0.9% INJ 10 ML SYR IV SCH (18:49)
[2025-05-07 00:23] VITALS: BP 127/60; TEMP 97.2; O2SAT 96
[2025-05-07 03:54] VITALS: BP 129/78; TEMP 97.2; O2SAT 95
[2025-05-07 04:22] LABS: BASO # 0.0 10^3/uL (0.0-0.2); BASO % 0.2 % (0.0-1.0); EOS # 0.2 10^3/uL (0.0-0.5); EOS % 1.6 % (0.0-3.0); LYMPH # 0.9 10^3/uL (1.5-5.0); LYMPH % 7.5 % (24.0-44.0); MONO # 1.6 10^3/uL (0.0-0.8); MONO % 13.4 % (2.0-8.0); NEUTROPHILS # 8.6 10^3/uL (1.5-8.5); NEUTROPHILS % 72.6 % (36.0-66.0); PLATELET COUNT, AUTOMATED 158 10^3/uL (150-450)
[2025-05-07 06:39] LABS: ALT/SGPT 68.0 U/L (7.0-40); AST/SGOT 85.0 U/L (<34); CALCIUM LEVEL 7.7 MG/DL (8.3-10.6); CARBON DIOXIDE LEVEL 22.0 MMOL/L (20-31); CHLORIDE LEVEL 107.0 MMOL/L (98-107); CREATININE FOR GFR 2.38 MG/DL (0.55-1.30); GLOMERULAR FILTRATION RATE 21.0 (>39); MAGNESIUM LEVEL 2.1 MG/DL (1.8-2.4); POTASSIUM SERUM 3.0 MMOL/L (3.5-5.1); SODIUM LEVEL 143.0 MMOL/L (136-145)
[2025-05-07 07:38] VITALS: BP 127/58; TEMP 98.2; O2SAT 93
[2025-05-07 08:02] LABS: PHOSPHORUS LEVEL 4.4 MG/DL (2.4-5.1)
[2025-05-07] MEDS: POTASSIUM CHLORIDE 10MEQ SR TABLET PO SCH (09:52)
[2025-05-07 11:45] VITALS: BP 107/58; TEMP 97.5; O2SAT 93
[2025-05-07 15:42] VITALS: BP 117/55; TEMP 97.6; O2SAT 95
[2025-05-07 19:46] VITALS: BP 130/60; TEMP 97.6; O2SAT 94
[2025-05-07] MEDS: SIMETHICONE 80MG CHEW TAB PO PRN (23:28)
[2025-05-08 00:06] VITALS: BP 138/66; TEMP 97; O2SAT 95
[2025-05-08 03:39] VITALS: BP 128/64; TEMP 97; O2SAT 94
[2025-05-08 06:01] LABS: BASO # 0.0 10^3/uL (0.0-0.2); BASO % 0.2 % (0.0-1.0); EOS # 0.2 10^3/uL (0.0-0.5); EOS % 2.0 % (0.0-3.0); LYMPH # 0.9 10^3/uL (1.5-5.0); LYMPH % 9.3 % (24.0-44.0); MONO # 1.7 10^3/uL (0.0-0.8); MONO % 16.5 % (2.0-8.0); NEUTROPHILS # 6.8 10^3/uL (1.5-8.5); NEUTROPHILS % 67.5 % (36.0-66.0); PLATELET COUNT, AUTOMATED 183 10^3/uL (150-450)
[2025-05-08 07:38] VITALS: BP 134/60; TEMP 97.5; O2SAT 94
[2025-05-08 07:39] LABS: ALT/SGPT 90.0 U/L (7.0-40); AST/SGOT 97.0 U/L (<34); CALCIUM LEVEL 7.9 MG/DL (8.3-10.6); CARBON DIOXIDE LEVEL 23.0 MMOL/L (20-31); CHLORIDE LEVEL 109.0 MMOL/L (98-107); CREATININE FOR GFR 1.28 MG/DL (0.55-1.30); GLOMERULAR FILTRATION RATE 44.2 (>39); MAGNESIUM LEVEL 1.9 MG/DL (1.8-2.4); PHOSPHORUS LEVEL 2.3 MG/DL (2.4-5.1); POTASSIUM SERUM 3.1 MMOL/L (3.5-5.1); SODIUM LEVEL 144.0 MMOL/L (136-145)
[2025-05-08 08:47] VITALS: BP 134/60
[2025-05-08] MEDS ORDERED: LOPE2CAP PO (14:17)
[2025-05-08] MEDS ORDERED: RISATAB3 PO (14:17)
[2025-05-08] MEDS ORDERED: SIME80CH6 PO (14:17)
[2025-05-08] MEDS ORDERED: METO1TAB87 PO (14:18)
[2025-05-08] MEDS ORDERED: POTA-136 PO (14:18)
[2025-05-08] MEDS ORDERED: PANT40TA29 PO (14:18)
== END 2025-05-08 15:39 | DRG 981 ==
LOC: M ED 13:41 → M ED INP 17:40 → M ICU 22:35 → M PCU 05-07 00:25
PROVIDERS: ADMIT Internal Medicine; ATTEND Student in an Organized Health Care Education/Training Program
PROC: 02HV33Z Insertion of Infusion Device into Superior Vena Cava, Percutaneous Approach (ICD-10-PCS; 2025-04-30)
PROC: 06HN33Z Insertion of Infusion Device into Left Femoral Vein, Percutaneous Approach (ICD-10-PCS; 2025-04-30)
PROC: 30233N1 Transfusion of Nonautologous Red Blood Cells into Peripheral Vein, Percutaneous Approach (ICD-10-PCS; 2025-05-01)
PROC: 30233K1 Transfusion of Nonautologous Frozen Plasma into Peripheral Vein, Percutaneous Approach (ICD-10-PCS; 2025-05-01)
PROC: 04L Lower Arteries, Occlusion (ICD-10-PCS; principal; 2025-05-01 13:08)
PROC: 0W9F3ZZ Drainage of Abdominal Wall, Percutaneous Approach (ICD-10-PCS; 2025-05-03)
DX: D68.32 Hemorrhagic disorder due to extrinsic circulating anticoagulants (principal); R57.8 Other shock; N17.0 Acute kidney failure with tubular necrosis; E87.20 Acidosis, unspecified; D68.61 Antiphospholipid syndrome; D62 Acute posthemorrhagic anemia; R19.7 Diarrhea, unspecified; M32.9 Systemic lupus erythematosus, unspecified; M79.81 Nontraumatic hematoma of soft tissue; E78.5 Hyperlipidemia, unspecified; Z79.01 Long term (current) use of anticoagulants; E83.39 Other disorders of phosphorus metabolism; R31.0 Gross hematuria; E83.51 Hypocalcemia; Z86.711 Personal history of pulmonary embolism; Z86.718 Personal history of other venous thrombosis and embolism; K76.0 Fatty (change of) liver, not elsewhere classified; Z79.899 Other long term (current) drug therapy; Z88.2 Allergy status to sulfonamides

== ENCOUNTER 2025-05-06 17:23 | Inpatient (IN) | payer MEDICARE, OTHER ==
[~2025-05-06] VITALS: Ht 167.6 cm; Wt 104.3 kg
[~2025-05-06 17:23] MED LIST changes: +ENOX100I3
[2025-05-08] MEDS ORDERED: LOPE2CAP PO (14:17)
[2025-05-08] MEDS ORDERED: SIME80CH6 PO (14:17)
[2025-05-08] MEDS ORDERED: RISATAB3 PO (14:17)
[2025-05-08] MEDS ORDERED: POTA-136 PO (14:18)
[2025-05-08] MEDS ORDERED: METO1TAB87 PO (14:18)
[2025-05-08] MEDS ORDERED: PANT40TA29 PO (14:18)
[2025-05-08] MEDS ORDERED: ACETAMINOPHEN 500 MG TAB PO PRN (15:25)
[2025-05-08] MEDS ORDERED: MAALOX 30 ML SUSP *UDC PO PRN (15:25)
[2025-05-08 15:47] VITALS: BP 117/56; TEMP 97.7; O2SAT 97
[2025-05-08] MEDS ORDERED: DICYCLOMINE 10 MG CAP PO PRN (17:05)
[2025-05-08] MEDS: SIMETHICONE 80MG CHEW TAB PO PRN (17:54)
[2025-05-08 20:17] VITALS: BP 128/64; TEMP 96.6; O2SAT 96
[2025-05-08] MEDS: POTASSIUM CHLORIDE 10MEQ SR TABLET PO SCH (20:27)
[2025-05-08] MEDS: METOPROLOL TART 25 MG TABLET PO SCH (20:27)
[2025-05-08 20:30] VITALS: TEMP 97.1
[2025-05-09 03:44] VITALS: BP 116/64; TEMP 96.9; O2SAT 93
[2025-05-09] MEDS ORDERED: SODIUM CHLORIDE 0.9% INJ 10 ML SYR IV PRN (05:45)
[2025-05-09] MEDS ORDERED: HEPARIN LOCK FLUSH 100 UNITS/ML 3 ML SYRINGE IV PRN (05:45)
[2025-05-09] MEDS: HEPARIN LOCK FLUSH 100 UNITS/ML 3 ML SYRINGE IV SCH (06:00)
[2025-05-09] MEDS: SODIUM CHLORIDE 0.9% INJ 10 ML SYR IV SCH (06:21)
[2025-05-09 06:47] LABS: PLATELET COUNT, AUTOMATED 207 10^3/uL (150-450)
[2025-05-09 07:07] LABS: ALT/SGPT 95.0 U/L (7.0-40); AST/SGOT 84.0 U/L (<34); CALCIUM LEVEL 8.4 MG/DL (8.3-10.6); CARBON DIOXIDE LEVEL 22.0 MMOL/L (20-31); CHLORIDE LEVEL 108.0 MMOL/L (98-107); CREATININE FOR GFR 1.05 MG/DL (0.55-1.30); GLOMERULAR FILTRATION RATE 56.1 (>39); POTASSIUM SERUM 3.9 MMOL/L (3.5-5.1); SODIUM LEVEL 142.0 MMOL/L (136-145)
[2025-05-09] MEDS: ASCORBIC ACID 500 MG TAB PO SCH (07:08)
[2025-05-09] MEDS: PANTOPRAZOLE 40MG TAB PO SCH (07:08)
[2025-05-09] MEDS: FERROUS GLUCONATE 324 MG TAB PO SCH (07:08)
[2025-05-09] MEDS: OYSTER SHELL CALCIUM 500 MG TAB PO SCH (07:08)
[2025-05-09 07:32] LABS: BASOPHILS 1 % (0-1); EOSINOPHILS 4 % (0-3); LYMPHOCYTES 12 % (16-44); METAMYELOCYTES 1 % (0-0); MONOCYTES 21 % (0-5); NEUTROPHILS 61 % (28-66); PLATELET ESTIMATE NORMAL (NORMAL)
[2025-05-09] MEDS: LOPERAMIDE 2 MG CAPLET PO PRN (08:18)
[2025-05-09 12:13] VITALS: BP 118/59; TEMP 97.1; O2SAT 95
[2025-05-09] MEDS: POTASSIUM CHLORIDE 10% LIQ 20MEQ/15ML UDC PO SCH (17:17)
[2025-05-09 20:00] VITALS: BP 116/58; TEMP 97.2; O2SAT 96
[2025-05-10 04:00] VITALS: BP 127/62; TEMP 97.1; O2SAT 95
[2025-05-10 06:35] LABS: CALCIUM LEVEL 8.1 MG/DL (8.3-10.6); CARBON DIOXIDE LEVEL 24.0 MMOL/L (20-31); CHLORIDE LEVEL 108.0 MMOL/L (98-107); CREATININE FOR GFR 0.91 MG/DL (0.55-1.30); GLOMERULAR FILTRATION RATE 66.6 (>39); POTASSIUM SERUM 4.0 MMOL/L (3.5-5.1); SODIUM LEVEL 141.0 MMOL/L (136-145)
[2025-05-10 14:00] VITALS: BP 121/74; TEMP 96.8; O2SAT 96
[2025-05-10 20:00] VITALS: BP 143/61; TEMP 98.8; O2SAT 98
[2025-05-11 04:00] VITALS: BP 131/63; TEMP 97.2; O2SAT 96
[2025-05-11] MEDS: POTASSIUM CHLORIDE 10% LIQ 20MEQ/15ML UDC PO SCH (08:48)
[2025-05-11 11:51] VITALS: BP 128/61; TEMP 97; O2SAT 96
[2025-05-11 20:00] VITALS: BP 135/63; TEMP 97.6; O2SAT 100
[2025-05-11] MEDS: CALCIUM CARBONATE 500 MG CHEW U/D PO PRN (20:04)
[2025-05-12] VITALS: BP 122/59; TEMP 97.2; O2SAT 97
[2025-05-12 04:00] VITALS: BP 135/60; TEMP 97; O2SAT 99
[2025-05-12 12:07] VITALS: BP 124/60; TEMP 97.3; O2SAT 99
[2025-05-12 20:00] VITALS: BP 129/60; TEMP 97; O2SAT 98
[2025-05-13 04:00] VITALS: BP 124/59; TEMP 97; O2SAT 98
[2025-05-13 07:15] LABS: PLATELET COUNT, AUTOMATED 221 10^3/uL (150-450)
[2025-05-13 07:50] LABS: CALCIUM LEVEL 8.1 MG/DL (8.3-10.6); CARBON DIOXIDE LEVEL 25.0 MMOL/L (20-31); CHLORIDE LEVEL 108.0 MMOL/L (98-107); CREATININE FOR GFR 0.83 MG/DL (0.55-1.30); GLOMERULAR FILTRATION RATE 74.4 (>39); POTASSIUM SERUM 4.2 MMOL/L (3.5-5.1); SODIUM LEVEL 141.0 MMOL/L (136-145)
[2025-05-13 12:00] VITALS: BP_SYST 110; BP_SYST 119; BP_DIAS 58; BP_DIAS 65; TEMP 97.3; TEMP 98; O2SAT 98
[2025-05-13] MEDS: TORSEMIDE 20 MG TAB PO ONE (12:56)
[2025-05-13 19:33] VITALS: BP 125/58; TEMP 97.7; O2SAT 98
[2025-05-14 03:50] VITALS: BP 118/58; TEMP 96.7; O2SAT 98
[2025-05-14] MEDS: TORSEMIDE 20 MG TAB PO SCH (08:18)
[2025-05-14 12:00] VITALS: BP 130/57; TEMP 98; O2SAT 98
[2025-05-14 19:38] VITALS: BP 127/61; TEMP 97.2; O2SAT 98
[2025-05-15 04:00] VITALS: BP 116/57; TEMP 97.5; O2SAT 98
[2025-05-15 08:17] LABS: PLATELET COUNT, AUTOMATED 214 10^3/uL (150-450)
[2025-05-15 08:46] LABS: CALCIUM LEVEL 8.2 MG/DL (8.3-10.6); CARBON DIOXIDE LEVEL 28.0 MMOL/L (20-31); CHLORIDE LEVEL 104.0 MMOL/L (98-107); CREATININE FOR GFR 1.02 MG/DL (0.55-1.30); GLOMERULAR FILTRATION RATE 58.1 (>39); POTASSIUM SERUM 3.4 MMOL/L (3.5-5.1); SODIUM LEVEL 142.0 MMOL/L (136-145)
[2025-05-15] MEDS: POTASSIUM CHLORIDE 10% LIQ 20MEQ/15ML UDC PO ONE (10:37)
[2025-05-15 12:00] VITALS: BP 120/57; TEMP 98.2; O2SAT 99
[2025-05-15] MEDS: DIPHENOXYLATE HCL/ATROPINE 2.5 MG/0.025 MG TABLET PO ONE (13:38)
[2025-05-15] MEDS: FIBER-CON 625 MG TAB PO SCH (17:20)
[2025-05-15 20:00] VITALS: BP 113/52; TEMP 99.1; O2SAT 99
[2025-05-16 04:00] VITALS: BP 107/58; TEMP 98.4; O2SAT 99
[2025-05-16] MEDS: DIPHENOXYLATE HCL/ATROPINE 2.5 MG/0.025 MG TABLET PO SCH (05:32)
[2025-05-16] MEDS: POTASSIUM CHLORIDE 10% LIQ 20MEQ/15ML UDC PO SCH (08:27)
[2025-05-16 12:02] VITALS: BP 114/58; TEMP 98.7; O2SAT 97
[2025-05-16 20:00] VITALS: BP 108/57; TEMP 97.2; O2SAT 98
[2025-05-17 04:00] VITALS: BP 128/58; TEMP 98; O2SAT 99
[2025-05-17 09:26] LABS: PLATELET COUNT, AUTOMATED 198 10^3/uL (150-450)
[2025-05-17 09:49] LABS: CALCIUM LEVEL 8.0 MG/DL (8.3-10.6); CARBON DIOXIDE LEVEL 29.0 MMOL/L (20-31); CHLORIDE LEVEL 103.0 MMOL/L (98-107); CREATININE FOR GFR 1.01 MG/DL (0.55-1.30); GLOMERULAR FILTRATION RATE 58.8 (>39); POTASSIUM SERUM 3.3 MMOL/L (3.5-5.1); SODIUM LEVEL 143.0 MMOL/L (136-145)
[2025-05-17 11:40] VITALS: BP 113/55; TEMP 97; O2SAT 97
[2025-05-17 12:00] VITALS: BP 124/62
[2025-05-17] MEDS ORDERED: ACET-683 PO (13:32)
[2025-05-17] MEDS ORDERED: METO1TAB87 PO (13:32)
[2025-05-17] MEDS ORDERED: FERR32TA PO (13:32)
[2025-05-17] MEDS ORDERED: DIPH1TAB80 PO (13:32)
[2025-05-17] MEDS ORDERED: FIBE62TA PO (13:32)
[2025-05-17] MEDS ORDERED: LOPE2CAP PO (13:32)
[2025-05-17] MEDS ORDERED: TORS20TA2 PO (13:32)
[2025-05-17] MEDS ORDERED: PANT40TA29 PO (13:32)
[2025-05-17] MEDS ORDERED: POTA20LI16 PO (13:32)
[2025-05-17] MEDS: POTASSIUM CHLORIDE 10% LIQ 20MEQ/15ML UDC PO ONE (13:58)
[2025-05-17 20:00] VITALS: BP 110/58; TEMP 98.3; O2SAT 98
[2025-05-18 04:00] VITALS: BP 113/57; TEMP 97.5; O2SAT 96
[2025-05-18] MEDS: POTASSIUM CHLORIDE 10% LIQ 20MEQ/15ML UDC PO SCH (08:31)
[2025-05-18 08:32] VITALS: BP 115/50
== END 2025-05-18 09:20 | disposition home or self-care (01) | DRG 949 ==
LOC: M PM&R 05-08 15:40
PROVIDERS: ADMIT Physical Medicine & Rehabilitation; ATTEND Physical Medicine & Rehabilitation
DX: S30.1XXD Contusion of abdominal wall, subsequent encounter (principal); D62 Acute posthemorrhagic anemia; N17.9 Acute kidney failure, unspecified; Z86.718 Personal history of other venous thrombosis and embolism; Z86.711 Personal history of pulmonary embolism; E87.6 Hypokalemia; R19.7 Diarrhea, unspecified; R00.0 Tachycardia, unspecified; E86.1 Hypovolemia; Z79.899 Other long term (current) drug therapy; Z88.2 Allergy status to sulfonamides; R60.9 Edema, unspecified; I89.0 Lymphedema, not elsewhere classified

== ENCOUNTER → 2025-05-29 | Outpatient (REF) | payer MEDICARE, OTHER ==
[~2025-05-29] MED LIST changes: +ACET-683 PO; +DIPH1TAB80 PO; +FERR32TA PO; +FIBE62TA PO; +LOPE2CAP PO; +METO1TAB87 PO; +PANT40TA29 PO; +POTA-136 PO; +POTA20LI16 PO; +RISATAB3 PO; +SIME80CH6 PO; +TORS20TA2 PO
[2025-05-29 19:33] LABS: ALT/SGPT 26.0 U/L (7.0-40); AST/SGOT 69.0 U/L (<34); CALCIUM LEVEL 9.3 MG/DL (8.3-10.6); CARBON DIOXIDE LEVEL 28.0 MMOL/L (20-31); CHLORIDE LEVEL 95.0 MMOL/L (98-107); CREATININE FOR GFR 1.04 MG/DL (0.55-1.30); GLOMERULAR FILTRATION RATE 56.8 (>39); MAGNESIUM LEVEL 1.8 MG/DL (1.8-2.4); POTASSIUM SERUM 4.8 MMOL/L (3.5-5.1); SODIUM LEVEL 136.0 MMOL/L (136-145)
== END ==
LOC: M LAB REF 17:59
PROVIDERS: ATTEND Internal Medicine Pulmonary Disease
DX: D68.62 Lupus anticoagulant syndrome (principal)

== ENCOUNTER → 2025-05-30 | Outpatient (REF) | payer MEDICARE, OTHER ==
[2025-05-30 13:22] LABS: PLATELET COUNT, AUTOMATED 213 10^3/uL (150-450)
== END ==
LOC: M LABDRWAD 12:55
PROVIDERS: ATTEND Internal Medicine Pulmonary Disease
DX: Z79.01 Long term (current) use of anticoagulants (principal)

== ENCOUNTER → 2025-08-19 | Outpatient (REF) | payer MEDICARE, OTHER ==
[2025-08-19 18:21] LABS: BASO # 0.0 10^3/uL (0.0-0.2); BASO % 0.8 % (0.0-1.0); EOS # 0.1 10^3/uL (0.0-0.5); EOS % 2.3 % (0.0-3.0); LYMPH # 1.3 10^3/uL (1.5-5.0); LYMPH % 28.3 % (24.0-44.0); MONO # 0.5 10^3/uL (0.0-0.8); MONO % 11.0 % (2.0-8.0); NEUTROPHILS # 2.7 10^3/uL (1.5-8.5); NEUTROPHILS % 57.2 % (36.0-66.0); PLATELET COUNT, AUTOMATED 323 10^3/uL (150-450)
== END ==
LOC: M LABDRWAD 16:57
PROVIDERS: ATTEND Internal Medicine Pulmonary Disease
DX: D68.62 Lupus anticoagulant syndrome (principal); Z86.711 Personal history of pulmonary embolism; Z79.01 Long term (current) use of anticoagulants; Z79.899 Other long term (current) drug therapy

== ENCOUNTER → 2025-08-19 | Outpatient (REF) | payer MEDICARE, OTHER ==
[2025-08-19 18:23] LABS: BASO # 0.0 10^3/uL (0.0-0.2); BASO % 0.6 % (0.0-1.0); EOS # 0.1 10^3/uL (0.0-0.5); EOS % 2.1 % (0.0-3.0); LYMPH # 1.5 10^3/uL (1.5-5.0); LYMPH % 31.4 % (24.0-44.0); MONO # 0.6 10^3/uL (0.0-0.8); MONO % 11.5 % (2.0-8.0); NEUTROPHILS # 2.6 10^3/uL (1.5-8.5); NEUTROPHILS % 54.2 % (36.0-66.0); PLATELET COUNT, AUTOMATED 328 10^3/uL (150-450)
[2025-08-19 18:44] LABS: ALT/SGPT 11.0 U/L (7.0-40); AST/SGOT 24.0 U/L (<34); CALCIUM LEVEL 9.3 MG/DL (8.3-10.6); CARBON DIOXIDE LEVEL 28.0 MMOL/L (20-31); CHLORIDE LEVEL 105.0 MMOL/L (98-107); CHOLESTEROL LEVEL 187.0 MG/DL (<200); CHOLESTEROL RISK RATIO 3.07 (<5); CREATININE FOR GFR 1.01 MG/DL (0.55-1.30); GLOMERULAR FILTRATION RATE 58.4 (>39); LDL CHOLESTEROL 113.4 MG/DL (<100); NON-HDL-C 126.2 MG/DL; POTASSIUM SERUM 4.5 MMOL/L (3.5-5.1); SODIUM LEVEL 142.0 MMOL/L (136-145); TRIGLYCERIDES LEVEL 64.0 MG/DL (<150)
[2025-08-19 18:46] LABS: TOTAL 25(OH) VITAMIN D 46.0 NG/ML (20.0-100.0)
[2025-08-19 18:47] LABS: FREE T4 1.15 NG/DL (0.89-1.76)
[2025-08-19 18:55] LABS: ESTIMATED AVERAGE GLUCOSE 100.0 MG/DL (60-110)
== END ==
LOC: M SFHCADAM 11:13
PROVIDERS: ATTEND Physician Assistant
DX: M32.9 Systemic lupus erythematosus, unspecified (principal); D68.62 Lupus anticoagulant syndrome; N18.9 Chronic kidney disease, unspecified; Z79.01 Long term (current) use of anticoagulants; Z68.33 Body mass index [BMI] 33.0-33.9, adult; E78.00 Pure hypercholesterolemia, unspecified; Z12.31 Encounter for screening mammogram for malignant neoplasm of breast; I87.2 Venous insufficiency (chronic) (peripheral); Z79.899 Other long term (current) drug therapy

== ENCOUNTER → 2025-09-23 | Outpatient (CLI) | payer MEDICARE, OTHER | LOC: M WHC 09:09 | PROVIDERS: ATTEND Nurse Practitioner Family | DX: Z12.31 Encounter for screening mammogram for malignant neoplasm of breast (principal); R92.313 Mammographic fatty tissue density, bilateral breasts ==